=== PATIENT | male | born 1960 | race Caucasian/White ===

== ENCOUNTER 2020-06-03 11:38 | Outpatient (CLI) | payer OTHER, SELFPAY ==
--- NOTE | 2020-06-03 11:46 | XR_ITS ---
WS: [id number] Right shoulder, 2 views, 06/03/2020 Clinical Data: RIGHT SHOULDER PAIN Comparison: None. Findings: No fractures or dislocations are seen. The AC joint is normal. The adjacent right clavicle, right sca pula and ribs are normal. The soft tissues are unremarkable. There is a small needle adjacent to the superior proximal portion of the right clavicle. XR/XR shoulder RT min 2V* [id number] Impression: Negative right shoulder.
== END 2020-06-03 11:39 | disposition home or self-care (01) ==
LOC: RAD 11:42
PROVIDERS: Family Provider Family Medicine; PCP Family Medicine; Visit Provider Family Medicine
DX: M25.511 Pain in right shoulder (principal)
CPT/HCPCS: 73030

== ENCOUNTER → 2020-06-18 09:18 | Outpatient (BNVA) | payer OTHER, SELFPAY | PROVIDERS: Family Provider Family Medicine; PCP Family Medicine; Referring Provider Family Medicine; Visit Provider Urology | DX: R97.20 Elevated prostate specific antigen [PSA] (principal); S40.25 Superficial foreign body of shoulder; X58.XXXA Exposure to other specified factors, initial encounter | CPT/HCPCS: 81001; 84153 ==

== ENCOUNTER → 2020-09-29 15:13 | Outpatient (BNVA) | payer OTHER, SELFPAY | PROVIDERS: Family Provider Family Medicine; PCP Family Medicine; Visit Provider Urology | DX: R97.20 Elevated prostate specific antigen [PSA] (principal); R93.5 Abnormal findings on diagnostic imaging of other abdominal regions, including retroperitoneum | CPT/HCPCS: 81003 ==

== ENCOUNTER 2021-04-18 14:21 | Outpatient (CLI) | payer OTHER, SELFPAY ==
--- NOTE | 2021-04-18 16:10 | N.ONRAD NP_ITS ---
Radiation Oncology Consultation Patient Name: Zcah Clark Date of : 1960 Date of Service: 04/18/2021 Attending Physician: Lupillo Cerda M.D. Zach Clark was seen in consultation this afternoon at the request of Dewayne Shields M.D. for consideration of prostate radiotherapy for the management of a recently diagnosed prostate cancer. He initially was identified to have an elevated PSA level (14.2 ng/mL) in June 2020. An MRI of the prostate ordered on September 06, 2020 demonstrated an ill-defined area of diminished signal on T2-weighted images in the left transition zone between the mid gland and apex and a suspicious area within the left posterolateral peripheral zone. The prostate capsule was intact and there was no abnormally enlarged lymph nodes in the pelvis. A transrectal MRI fusion biopsy of the prostate gland was performed on March 24, 2021 (medical records were requested from the [facility] in [place], [place] and personally reviewed) Pathology diagnosed a prostatic adenocarcinoma with a Julienne score of 3+3 (grade group 1) involving 5% of the left apex random biopsy and 8% of the biopsies from the MRI identified lesions. No extraprostatic extension nor perineural invasion were present. The patient presents for evaluation regarding definitive radiotherapy. I discussed the AJCC clinical stage IIA (T1CN0) favorable intermediate risk prostate cancer specific to the patient's diagnosis and the National Comprehensive Cancer Network Guidelines recommendation for active surveillance, external beam radiotherapy, brachytherapy, or surgery. I have also ordered a PSA and testosterone levels. If the patient elects radiotherapy, I would endorse a hypofractionated treatment regimen. I also discussed potential adverse events related to pelvic radiation treatment. The patient???s treatment plan was discussed with Dewayne Shields M.D. Signed by: Dr. Lupillo Cerda 04/18/2021 4:09:30 PM
[2021-04-18 17:26] LABS: Alanine Aminotransferase 33 U/L (0-41); Albumin Level 4.4 g/dL (3.5-5.2); Alkaline Phosphatase 136 IU/L (40-130); Aspartate Amino Transferase 30 U/L (0-40); Blood Urea Nitrogen 21 mg/dL (8-23); Calcium 9.3 mg/dL (8.5-10.5); Carbon Dioxide 22 mmol/L (22-29); Chloride 103 mmol/L (98-107); Globulin 2.6 g/dL (1.3-4.6); Glomerular Filtration Rate 61.3 mL/min (90-130); Glucose 94 mg/dL (65-115); Osmolality Calculated 291 mOsm/kg (285-295); Sodium 139 mmol/L (136-145); Total Bilirubin 0.2 mg/dL (0.15-1.2)
[2021-04-18 19:38] LABS: Testosterone Total 340.4 ng/dL (193-740)
== END 2021-04-18 14:22 | disposition home or self-care (01) ==
LOC: ONCMED 14:28
PROVIDERS: PCP Family Medicine; Visit Provider Radiology Radiation Oncology
DX: C61 Malignant neoplasm of prostate (principal); R97.20 Elevated prostate specific antigen [PSA]; R79.89 Other specified abnormal findings of blood chemistry; Z79.899 Other long term (current) drug therapy
CPT/HCPCS: 80053; 84153; 84403; 99205

== ENCOUNTER 2021-05-03 06:07 | Outpatient (RCR) | payer OTHER, SELFPAY ==
--- NOTE | 2021-05-03 | CT_ITS ---
Radiation Therapy Planning CT images; total exam DLP: 1094.85 mGy-cm MTDD
== END 2021-05-03 23:59 | disposition home or self-care (01) ==
LOC: ONCMED 06:07
PROVIDERS: PCP Family Medicine; Visit Provider Specialist
DX: Z51.0 Encounter for antineoplastic radiation therapy (principal); C61 Malignant neoplasm of prostate; Z79.899 Other long term (current) drug therapy
CPT/HCPCS: 77334

== ENCOUNTER 2021-06-02 06:35 | Outpatient (RCR) | payer OTHER, SELFPAY ==
--- NOTE | 2021-05-17 16:13 | ONCRAD TMN_ITS ---
Radiation Oncology Treatment Management Note Patient Name: Zach Clark Date of : 1960 Date of Service: 05/17/2021 Attending Physician: Lupillo Cerda M.D. Zach Clark is a 61 year old white male diagnosed with a clinical stage IIA (T1CN0) favorable intermediate risk adenocarcinoma of the prostate. His initial PSA was 11.9 ng/mL. A transrectal MRI fusion biopsy of the prostate gland diagnosed a prostatic adenocarcinoma with a [place] score of 3+3 (grade group 1) involving 5% of the left apex random biopsy and 8% of the biopsies from the MRI identified lesions. The patient has received 12 Gy of a prescribed 60 Sawant to the prostate and seminal vesicles with an intensity modulated radiotherapy plan utilizing a step and shoot treatment technique. Upon review of systems, he described nocturia of 4???5 times. On physical examination, the patient weighed 197 lbs. His temperature was 98 ???F with a blood pressure of 138/87 mmHg. The pulse was 72 bpm and his respiratory rate was 18. No erythema within the treatment rojas. Continue hypofractionated prostate radiotherapy as prescribed. I will prescribe Flomax for LUTS. Signed by: Dr. Lupillo Cerda 05/17/2021 4:12:36 PM
--- NOTE | 2021-05-25 08:39 | ONCRAD TMN_ITS ---
Radiation Oncology Treatment Management Note Patient Name: Zach Clark Date of : 1960 Date of Service: 05/24/2021 Attending Physician: Lupillo Cerda M.D. Zach Clark is a 61 year old white male diagnosed with a clinical stage IIA (T1CN0) favorable intermediate risk adenocarcinoma of the prostate. His initial PSA was 11.9 ng/mL. A transrectal MRI fusion biopsy of the prostate gland diagnosed a prostatic adenocarcinoma with a [place] score of 3+3 (grade group 1) involving 5% of the left apex random biopsy and 8% of the biopsies from the MRI identified lesions. The patient has received 27 Gy of a prescribed 60 Sawant to the prostate and seminal vesicles with an intensity modulated radiotherapy plan utilizing a step and shoot treatment technique. Upon review of systems, he described improvement in nocturia (decreased to 2 times). On physical examination, the patient weighed 196 lbs. His temperature was 97.8 ???F with a blood pressure of 129/80 mmHg. The pulse was 77 bpm and his respiratory rate was 18. No erythema within the treatment rojas. Continue hypofractionated prostate radiotherapy as planned. Signed by: Dr. Lupillo Cerda 05/25/2021 8:38:27 AM
--- NOTE | 2021-06-01 09:49 | ONCRAD TMN_ITS ---
Radiation Oncology Treatment Management Note Patient Name: Zach Clark Date of : 1960 Date of Service: 05/30/2021 Attending Physician: Lupillo Cerda M.D. Zach Clark is a 61 year old white male diagnosed with a clinical stage IIA (T1CN0) favorable intermediate risk adenocarcinoma of the prostate. His initial PSA was 11.9 ng/mL. A transrectal MRI fusion biopsy of the prostate gland diagnosed a prostatic adenocarcinoma with a [place] score of 3+3 (grade group 1) involving 5% of the left apex random biopsy and 8% of the biopsies from the MRI identified lesions. The patient has received 39 Gy of a prescribed 60 Sawant to the prostate and seminal vesicles with an intensity modulated radiotherapy plan utilizing a step and shoot treatment technique. Upon review of systems, he reported worsening nocturia and inguinal swelling. On physical examination, the patient weighed 195 lbs. His temperature was 98 ???F with a blood pressure of 133/87 mmHg. The pulse was 76 bpm and his respiratory rate was 18. No erythema within the treatment rojas. Continue hypofractionated prostate radiotherapy as prescribed. I will increase the Flomax to 0.8 mg nightly. Signed by: Dr. Lupillo Cerda 06/01/2021 9:48:18 AM
== END 2021-06-02 23:59 | disposition home or self-care (01) ==
LOC: ONCMED 06:35
PROVIDERS: PCP Family Medicine; Visit Provider Radiology Radiation Oncology
DX: Z51.0 Encounter for antineoplastic radiation therapy (principal); C61 Malignant neoplasm of prostate; Z79.899 Other long term (current) drug therapy
CPT/HCPCS: 77300; 77301; 77336; 77338; 77385

== ENCOUNTER 2021-06-08 06:30 | Outpatient (RCR) | payer OTHER, SELFPAY ==
--- NOTE | 2021-06-09 08:33 | ONCRAD TMN_ITS ---
Radiation Oncology Treatment Management Note Patient Name: Zach Clark Date of : 1960 Date of Service: 06/07/2021 Attending Physician: Lupillo Cerda M.D. Zach Clark is a 61 year old white male diagnosed with a clinical stage IIA (T1CN0) favorable intermediate risk adenocarcinoma of the prostate. His initial PSA was 11.9 ng/mL. A transrectal MRI fusion biopsy of the prostate gland diagnosed a prostatic adenocarcinoma with a [place] score of 3+3 (grade group 1) involving 5% of the left apex random biopsy and 8% of the biopsies from the MRI identified lesions. The patient has received 57 Gy of a prescribed 60 Sawant to the prostate and seminal vesicles with an intensity modulated radiotherapy plan utilizing a step and shoot treatment technique. Upon review of systems, he stated that the increase in Flomax dosage has improved his symptom of nocturia. On physical examination, the patient weighed 195 lbs. His temperature was 98.9 ???F with a blood pressure of 125/81 mmHg. The pulse was 71 bpm and his respiratory rate was 18. No erythema within the treatment rojas. Continue hypofractionated prostate radiotherapy as planned. Signed by: Dr. Lupillo Cerda 06/09/2021 8:32:15 AM
--- NOTE | 2021-06-09 08:34 | N.ONRD TS_ITS ---
Radiation OncologyTreatment Summary Patient Name: Zach Clark Date of : 1960 Date of Service: 06/08/2021 Attending Physician: Lupillo Cerda M.D. Zach Clark has completed prostate radiotherapy for the management of a clinical stage IIA (T1CN0) favorable, intermediate-risk adenocarcinoma of the prostate. His initial PSA was 11.9 ng/mL. A transrectal MRI fusion biopsy of the prostate gland diagnosed a prostatic adenocarcinoma with a Julienne score of 3+3 (grade group 1) involving 5% of the left apex random biopsy and 8% of the biopsies from the MRI identified lesions. Daily radiotherapy was administered between the dates of May 11, 2021 through June 08, 2021. A prescribed dose of 60 Gy was delivered in 20 fractions encompassing 29 elapsed days. The prostate gland and proximal seminal vesicles were treated utilizing an IMRT plan using a step and shoot treatment technique. The plan arranged seven gantry angles (40???, 100???, 135???, 225???, 260???, 295???, and 330???) replicating an arc. The collimator rotation was 0???. The field sizes measured between 10.5 cm x 9.8 cm to 13.3 cm x 10 cm. The SSDs measured a minimum of 82 cm to a maximum of 86.5 cm. The ports delivered 177 MU, 152 MU, 122 MU, 102 MU, 142 MU, 177 MU, and 791 MU corresponding to the gantry angles described. All treatments were performed on the [employer] linear accelerator with an isocentric technique. The dose was calculated by Anisotropic Analytic Algorithm. A Photon energy of 15 MV were prescribed. The plan was normalized to deliver 100% of the prescription dose to 95% of the planning target volume. Signed by: Dr. Lupillo Cerda 06/09/2021 8:32:25 AM
== END 2021-07-03 23:59 | disposition home or self-care (01) ==
LOC: ONCMED 06:30
PROVIDERS: PCP Family Medicine; Visit Provider Radiology Radiation Oncology
DX: Z51.0 Encounter for antineoplastic radiation therapy (principal); C61 Malignant neoplasm of prostate
CPT/HCPCS: 77014; 77336; 77385

== ENCOUNTER 2021-07-08 06:23 | Outpatient (RCR) | payer OTHER, SELFPAY ==
--- NOTE | 2021-07-08 08:37 | ONCRAD EPV_ITS ---
Radiation Oncology Follow-Up Note Patient Name: Zach Clark Date of : 1960 Date of Service: 07/08/2021 Attending Physician: Lupillo Cerda M.D. Zach Clark returned to my office this morning for a routinely scheduled follow-up appointment. He completed prostate radiotherapy in June for the management of a clinical stage IIA (T1CN0) favorable, intermediate-risk adenocarcinoma of the prostate. His initial PSA was 11.9 ng/mL. A transrectal MRI fusion biopsy of the prostate gland diagnosed a prostatic adenocarcinoma with a [place] score of 3+3 (grade group 1) involving 5% of the left apex random biopsy and 8% of the biopsies from the MRI identified lesions. Daily radiotherapy was administered between the dates of May 11, 2021 through June 08, 2021. A prescribed dose of 60 Gy was delivered in 20 fractions encompassing 29 elapsed days. On review of systems, he did not describe any lower urinary tract symptoms (dysuria) nor did he report diarrhea. On physical examination, the patient weighed 192 pounds. The temperature is 98 ???F and the blood pressure was 140/83 mmHg. The pulse was 74 bpm and his respiratory rate was 18 breaths per minute In summary, Mr. Clark returned for a routine follow-up appointment. A PSA obtained prior to this appointment was 5.1 ng/mL. The PSA is trending down. He will continue to see his urologist as scheduled. Signed by: Dr. Lupillo Cerda 07/08/2021 8:36:00 AM
== END 2021-08-02 23:59 | disposition home or self-care (01) ==
LOC: ONCMED 06:23
PROVIDERS: PCP Family Medicine; Visit Provider Radiology Radiation Oncology
DX: Z08 Encounter for follow-up examination after completed treatment for malignant neoplasm (principal); Z85.46 Personal history of malignant neoplasm of prostate; Z92.3 Personal history of irradiation
CPT/HCPCS: 36415; 84153; 99024

== ENCOUNTER 2021-10-24 12:42 | Outpatient (CLI) | payer OTHER, SELFPAY ==
--- NOTE | 2021-10-24 13:00 | XR_ITS ---
WS: [id number] RIGHT SHOULDER: 3 VIEW(S) TECHNIQUE: Internal and external rotation with Y view. HISTORY: SHOULDER PAIN, RIGHT COMPARISON: 06/03/2020 No fracture or dislocation or soft tissue abnormality. Mild narrowing of the RIGHT AC joint. Similar to the prior study. XR/XR shoulder RT min 2V* [id number] IMPRESSION: Mild RIGHT AC joint arthritis.
== END 2021-10-24 12:43 | disposition home or self-care (01) ==
PROVIDERS: PCP Family Medicine; Visit Provider Family Medicine
DX: M19.011 Primary osteoarthritis, right shoulder (principal)
CPT/HCPCS: 73030

== ENCOUNTER 2021-11-23 14:57 | Outpatient (CLI) | payer OTHER, SELFPAY ==
--- NOTE | 2021-11-23 15:11 | MR_ITS ---
WS: [id number] MRI RIGHT SHOULDER HISTORY: SHOULDER PAIN RIGHT COMPARISON: Shoulder radiograph 10/24/2021. TECHNIQUE: Multiplanar sequences of the shoulder joint are submitted. Mild AC joint arthritis. Soft tissue and bone hypertrophy with mild encroachment upon the rotator cuf f. Downsloping acromion with a moderate size osteophyte along the distal undersurface of the acromion measuring 6 mm contacting the rotator cuff interval. Lobulated subacromial and subdeltoid effusion. No os acromion. Biceps tendon is partially dislocated at the bicipital groove. The tendon in the bici pital groove is very small caliber. Increased fluid within the biceps tendon sheath. Abnormal signal in the distal supraspinatus tendon. Beyond the subacromial impingement there is thick ening and increased T2 signal within the tendon. Full-thickness tear is suspected. There is also asso ciated moderate atrophy and fatty replacement of the supraspinatus muscle. Mild intrasubstance degene ration of the distal subscapularis tendon but no definite tear. Infraspinatus tendon appears intact. Mild narrowing of the glenohumeral joint. No labral tear identified. Mild flattening of the posterior lateral humeral head with osseous changes suspicious for osteonecrosis. MR/MR shoulder RT wo con* [id number] IMPRESSION: 1. Torn retracted supraspinatus tendon to the superior humeral head. Moderate atrophy and fatty replacement of the supraspinatus muscle. 2. Subacromial impingement with narrowing of the joint space contributing to t he supraspinatus tear. 3. Mildly complex lobulated fluid in the subacromial and subdeltoid bursa. Pro bably reactive from the subacromial impingement. 4. Mild AC joint arthritis with encroachment. 5. Small caliber and mildly subluxed biceps tendon in the bicipital groove. Mi ld tenosynovitis.
== END 2021-11-23 14:58 | disposition home or self-care (01) ==
PROVIDERS: PCP Family Medicine; Visit Provider Family Medicine
DX: M75.101 Unspecified rotator cuff tear or rupture of right shoulder, not specified as traumatic (principal); M19.011 Primary osteoarthritis, right shoulder
CPT/HCPCS: 73221

== ENCOUNTER 2022-01-05 07:33 | Day surgery (SDC) | payer OTHER, SELFPAY ==
[2022-01-03 11:35] VITALS: BMI 25.7
[2022-01-05] VITALS (8 sets, daily range): BP systolic 110–147; BP diastolic 63–90; PULSE 57–74; RESP 15–20; TEMP 36.2–36.3; O2SAT 95–100
[2022-01-05 08:13] LABS: Glucose Point of Care 125 mg/dL (70-110)
[2022-01-05] MEDS: acetaminophen 500 mg Tablet 1000 MG PO (08:13)
[2022-01-05] MEDS: sodium chloride 0.9% 1,000 ML 30 ML IV (08:13)
--- NOTE | 2022-01-05 08:25 | ANES.PREANE2 ---
Pre-Anesthetic Assessment Height/Weight: Height 1.83 m Weight 86.183 kg Temp Pulse Resp BP Pulse Ox 97.3 F L 73 16 147/90 99 01/05/22 07:51 01/05/22 07:51 01/05/22 07:51 01/05/22 07:51 01/05/22 07:51 Preop Diagnosis: Rotator cuff tear Right shoulder Operation Date: 01/05/22 09:10 Proposed Procedures p Rotator Cuff Repair M75.101(Right) - Ivan Madrid MD s Shoulder Arthroscopy(Right) - Ivan Madrid MD Familial anesthetic complications: None Was Beta Jett taken within 24 hours: N/A Was Clonidine taken within 24 hours: N/A Last intake: Intake Last Liquid Date 01/04/22 Last Liquid Time 21:00 Last Solid Date 01/04/22 Last Solid Time 21:00 Social No alcohol and No tobacco Exam alert, oriented x 3, clear to auscultation bilaterally and regular rate & rhythm Airway Mallampati: Class II Dentition: partials Pulmonary None reported CV/HEM Hypertension None reported Hepatic None reported GI None reported Metabolic Diabetes Mellitus and Hyperlipidemia [facility] [place] Osteoarthritis/DJD Neuropsych None reported Anesthetic Plan ASA status: 3 Anesthesia: General and Regional (specify below) Risk of > 500 ml blood loss (7ml/kg in children): No Medications/Allergies Home Medications Medication Instructions Recorded Confirmed Last Taken Type atorvastatin 10 mg tablet 10 mg PO DAILY 06/09/20 01/05/22 01/04/22 History losartan 25 mg tablet 25 mg PO DAILY 06/09/20 01/05/22 01/04/22 History metformin 500 mg tablet 1,000 mg PO BID 06/09/20 01/05/22 01/04/22 History omega-3 fatty acids 500 mg capsule 500 mg PO DAILY 06/09/20 01/05/22 01/04/22 History cholecalciferol (vitamin D3) 50 50 mcg PO DAILY 06/18/20 01/05/22 01/04/22 History mcg (2,000 unit) capsule multivitamin,[id number] 1 tab PO DAILY 06/18/20 01/03/22 Unknown History (Complete Multivitamin) insulin aspart U-100 100 unit/mL 100 unit SUBCUT DAILY PRN 09/29/20 01/05/22 01/02/22 History (3 mL) subcutaneous pen (Novolog Flexpen U-100 Insulin aspart) cyclobenzaprine 10 mg tablet 10 mg PO TID 12/28/21 01/03/22 Unknown History naproxen 500 mg tablet (Naprosyn) 500 mg PO BID #60 tab 12/28/21 01/05/22 Unknown Rx tramadol 50 mg tablet 50 mg PO Q8H PRN 12/28/21 01/05/22 12/27/21 History Allergies Allergy/AdvReac Type Severity Reaction Status Date / Time shrimp Allergy Unknown Unknown Verified 01/03/22 11:33 Current Medications Generic Name Dose Route Start Last Admin Trade Name Freq PRN Reason Stop Dose Admin Sodium Chloride 1,000 mls @ 30 mls/hr 01/05/22 07:45 01/05/22 08:13 Sodium Chloride 0.9% IV 01/06/22 07:44 30 mls/hr .Q24H BISI Administration PFSH Anesthesia Medical History Bursitis DM2 (diabetes mellitus, type 2) Elevated cholesterol Elevated PSA HTN (hypertension) Prostate cancer Vitamin D deficiency Surgical History Hx of prostate biopsy Family History Brother Diabetes Father , AFTER A WHIPPLE PROCEDURE FOR TUMOR IN PANCREAS Cancer Mother Diabetes CABG AT AGE 86 Social History Smoking and tobacco status: former smoker Alcohol intake: unknown Adopted: No Caregiver/support person: No Lives independently: No Marital status: Current occupational status: employed Data Anesthesia Cardiac Studies: No Data to Display
--- NOTE | 2022-01-05 09:17 | W.PM.OPSUD ---
Surgery/Procedure H&P Update DATE OF PROCEDURE: January 05, 2022 DATE H&P PERFORMED: 12/28/21 H&P UPDATE INFORMATION: I have reviewed H&P completed within last 30 days PREOP DIAGNOSIS: Rotator cuff tear Right shoulder PLANNED PROCEDURE: Operation Date: 01/05/22 09:10 Proposed Procedures p Rotator Cuff Repair M75.101(Right) - Ivan Madrid MD s Shoulder Arthroscopy(Right) - Ivan Madrid MD
[2022-01-05 09:48] LABS: Anion Gap 19.3 (5-19); Blood Urea Nitrogen 25 mg/dL (8-23); Carbon Dioxide 24 mmol/L (22-29); Chloride 103 mmol/L (98-107); Glomerular Filtration Rate 61.3 mL/min (90-130); Glucose 135 mg/dL (65-115); Osmolality Calculated 300 mOsm/kg (285-295); Potassium 4.3 mmol/L (3.5-5.1); Sodium 142 mmol/L (136-145)
--- NOTE | 2022-01-05 09:55 | ANES.PROC ---
Anesthesia Procedures Procedure/Date: 01/05/22 Nerve Block ^: Nerve Block 1: Main Anesthesia: general anesthesia Time Out Performed: Yes Consent: requested by attending/covering physician, from patient, risks and benefits reviewed and patient agrees to proceed Nerve block location: interscalene (R) Anesthesia monitors applied: pulse oximetry, EKG, BP cuff and oxygen Nerve block position: semi sitting Anesthetic Used: ropivicaine 0.5% (20) and with decadron (4 mg) Ultrasound used to: recognize landmarks, visualize and ID brachial plexus and visualize and ID interscalene groove Nerve Stimulator Used?: No Interscalene/Femoral BLK: 2 stimuplex 22 g needle used for position and inplane approach, visualize local anesthetic spread and no vascular puncture identified Injection: neg aspiration of heme Patient Tolerated Procedure: well Complications: none
--- NOTE | 2022-01-05 12:09 | PM.OP ---
Operative Report Date of procedure: January 05, 2022 Pre-op diagnosis: Preop Diagnosis Rotator cuff tear Right shoulder Post-op diagnosis: same Post-op diagnosis: Full-thickness tear of right rotator cuff, partial tear right biceps tendon, impingement Procedure done: Arthroscopic right rotator cuff repair, arthroscopic right subacromial decompression, arthroscopic assisted open right biceps tenodesis Implants: Flores and Nephew Helicoil 5.5 mm knotless x2, Flores and Nephew Helicoil 4.5 mm with Ultratape x2, Flores and Nephew Q fix x2 Pathology: none sent Surgeon: Ivan Madrid Anesthesia: General and Nerve Block (Interscalene) Estimated blood loss (mL): 20 Findings: The patient had a full-thickness tear of his central supraspinatus approximately 2 cm from anterior to posterior with a centimeter and half of tenderness retraction. He had degeneration and partial tearing of his biceps tendon from the labrum to where it entered the bicipital groove. He had prominent spurring of his acromion. No labral tearing or glenohumeral degenerative changes were noted. Condition: stable Disposition: PACU Procedure: Patient was taken to the operating room after interscalene block was provided by anesthesia. He was given 2 g of Ancef and a general anesthesia. He was positioned in the lateral position with his right arm and 10 and later 15 pounds of traction. A timeout was performed. The shoulder was entered through a posterior portal made 2 cm inferior medial to the posterior corner of the acromion. A scope cannula and trocar were driven into the glenohumeral joint. An 8 mm inflow cannula was placed anteriorly. The above rotator cuff tear was identified. The intra-articular biceps tendon looked degenerative with a longitudinal split. I decision was made to proceed with a biceps tenodesis. A spinal needle was introduced from the lateral shoulder and a Prolene suture passed across the biceps. Both limbs of the suture retracted out to the anterior portal and secured with half hitch sutures. The Flores and Nephew Werewolf cautery was used to release the biceps from its attachment on the superior labrum. The scope and anterior cannula were then redirected to the subacromial space. A lateral working portal was opened up with the scalpel blade and a lateral cannula introduced there. The leading edge of the acromion was outlined. 5 5 acromionizer introduced and prominent spurring of the anterior and inferior acromion was removed. Attention was then focused on the rotator cuff. The footprint was debrided with the acromionizer. Through a small lateral stab wound a Flores and Nephew Helicoil 4.5 mm anchor with tape suture was passed in the posterior medial footprint. A Flores and NephSoft Tissue Regeneration FirstPass suture passer was used to shuttle 1 limb of tape through the far posterior rotator cuff tear approximately 8 mm from the edge and the second limb approximately 5 mm anterior to that. The second anchor was placed in the anterior medial footprint and sutures passed in identical fashion. Each suture was applied to the lateral cork cannula with a sliding Martinez knot and the alternating half hitch bringing the medial rotator cuff to bone. 1 suture from each anchor was brought out the lateral cannula and passed through a Flores and Nephew Helicoil knotless anchor. A posterior lateral anchor was placed and the suture secured through the anchor drawing the posterior rotator cuff to bone. A second anchor was placed anterior laterally drawing the remaining sutures through drawing the anterior lateral cuff to bone. The repair was probed and found to be stable. Next a 3 cm long incision was made just anterior to the axillary fold dissection was carried down bluntly beneath the pectoralis major identifying the biceps tendon in the bicipital groove. It was retracted out through the incision. The inferior bicipital groove was cleared of soft tissue with cautery. 2Q fix anchors were placed approximately a centimeter apart. There passed around the biceps and a locking luggage tag type fashion securing the tension biceps to bone. The tenodesis incision was irrigated with saline. Deep tissues were closed with 2-0 Vicryl and the skin with interrupted 3-0 Prolene. Portals were closed with 3-0 Prolene. Xeroflo gauze was placed over the tenodesis incision and all incisions were covered with 4 x 4's ABD pads and Aquaphor tape. The patient was placed in a sling, extubated, and taken to recovery room in stable condition.
--- NOTE | 2022-01-05 12:18 | SUR.PHASEI ---
1208 PT TO PACU 5 , WARM BLANKETS X 4 TO PT, PT AWAKES TO VOICE, GOOD RESPIRATRORY EFFORT NOTED RT SHOULDER DRESSING D/I DISTAL FINGERS PINK WARM WITH CAP REFILL LESS THAN 3 SECONDS, PT MOVES FINGERS TO COMMAND, STATE HE HAS (NUMB) SENSATION TO TOUCH, IV TO LT FOREARM #18 PATENT TO NS 100ML UP AT KVO RATE PER GRAVITY, BILAT SCDS ON . PT ID BRACELET TO LT WRIST , PT ID'D WITH 2 IDENTIFIERS.
[2022-01-05] MEDS: ondansetron 2 mg/ML SDV 2 mL 4 MG IVP (13:17)
== END 2022-01-05 13:52 | disposition home or self-care (01) ==
PROVIDERS: Anesthesiology; PCP Family Medicine; Visit Provider Orthopaedic Surgery
PROC: (CPT 29826; principal; 2022-01-05 09:00)
PROC: (CPT 29805; 2022-01-05 09:00)
DX: M75.101 Unspecified rotator cuff tear or rupture of right shoulder, not specified as traumatic (principal); I10 Essential (primary) hypertension; E11.9 Type 2 diabetes mellitus without complications; E78.5 Hyperlipidemia, unspecified; M19.90 Unspecified osteoarthritis, unspecified site; Z79.4 Long term (current) use of insulin; Z79.84 Long term (current) use of oral hypoglycemic drugs; Z80.42 Family history of malignant neoplasm of prostate; E55.9 Vitamin D deficiency, unspecified; Z87.891 Personal history of nicotine dependence
CPT/HCPCS: 29826; 29827; 29828; 36416; 64415; 76942; 80048; 82962; C1713; J0690; J1100; J2405; J2704; J2795; J3010; J3490; J7030

== ENCOUNTER → 2022-01-13 12:23 | Outpatient (BNVA) | payer OTHER, SELFPAY | PROVIDERS: PCP Family Medicine; Visit Provider Family Medicine | DX: I10 Essential (primary) hypertension (principal); C61 Malignant neoplasm of prostate | CPT/HCPCS: 80053; 83036; 84153; 85025 ==

== ENCOUNTER 2022-02-22 06:00 | Outpatient (RCR) | payer OTHER, SELFPAY | END 2022-03-02 23:59 | disposition home or self-care (01) | LOC: SPT 06:00 | PROVIDERS: PCP Family Medicine; Referring Provider Orthopaedic Surgery; Visit Provider Orthopaedic Surgery | DX: Z47.89 Encounter for other orthopedic aftercare (principal) | CPT/HCPCS: 97110; 97161 ==

== ENCOUNTER 2022-03-03 06:00 | Outpatient (RCR) | payer OTHER, SELFPAY | END 2022-04-02 23:59 | disposition home or self-care (01) | LOC: SPT 06:00 | PROVIDERS: PCP Family Medicine; Referring Provider Orthopaedic Surgery; Visit Provider Orthopaedic Surgery | DX: Z47.89 Encounter for other orthopedic aftercare (principal); M25.511 Pain in right shoulder | CPT/HCPCS: 97110; 97140 ==

== ENCOUNTER 2022-04-03 06:00 | Outpatient (RCR) | payer OTHER, SELFPAY | END 2022-05-03 23:59 | disposition home or self-care (01) | LOC: SPT 06:00 | PROVIDERS: PCP Family Medicine; Visit Provider Orthopaedic Surgery | DX: Z47.89 Encounter for other orthopedic aftercare (principal) | CPT/HCPCS: 97110 ==

== ENCOUNTER → 2022-04-20 11:12 | Outpatient (BNVA) | payer OTHER, SELFPAY | PROVIDERS: PCP Family Medicine; Visit Provider Family Medicine | DX: Z51.81 Encounter for therapeutic drug level monitoring (principal); E11.9 Type 2 diabetes mellitus without complications; R97.20 Elevated prostate specific antigen [PSA]; Z98.890 Other specified postprocedural states; C61 Malignant neoplasm of prostate; R35.0 Frequency of micturition; I10 Essential (primary) hypertension; R74.8 Abnormal levels of other serum enzymes | CPT/HCPCS: 80053; 83036; 85025 ==

== ENCOUNTER → 2022-12-26 09:08 | Outpatient (BNVA) | payer OTHER, SELFPAY | PROVIDERS: PCP Family Medicine; Visit Provider Family Medicine | DX: I10 Essential (primary) hypertension (principal); E11.9 Type 2 diabetes mellitus without complications; R97.20 Elevated prostate specific antigen [PSA]; Z51.81 Encounter for therapeutic drug level monitoring; Z13.220 Encounter for screening for lipoid disorders; E53.8 Deficiency of other specified B group vitamins | CPT/HCPCS: 80053; 80061; 82607; 83036; 84153; 85025 ==

== ENCOUNTER → 2024-02-28 09:44 | Outpatient (BNVA) | payer MEDICARE, SELFPAY | PROVIDERS: PCP Family Medicine; Visit Provider Family Medicine | DX: Z00.00 Encounter for general adult medical examination without abnormal findings (principal); E53.8 Deficiency of other specified B group vitamins; C61 Malignant neoplasm of prostate; E55.9 Vitamin D deficiency, unspecified; Z51.81 Encounter for therapeutic drug level monitoring; R61 Generalized hyperhidrosis | CPT/HCPCS: 80053; 82306; 82607; 83036; 84153; 84439; 84443; 85025; 86141 ==

== ENCOUNTER 2024-04-18 06:31 | Outpatient (CLI) | payer MEDICARE, SELFPAY ==
--- NOTE | 2024-04-18 06:45 | US_ITS ---
WS: [id number] RENAL ULTRASOUND URINARY BLADDER ULTRASOUND HISTORY: CKD COMPARISON: None available. TECHNIQUE: 2-D and color Doppler imaging of the kidney submitted. Right kidney: 9.9 cm x 5.1 cm x 5.1 cm. Normal echogenicity with no hydronephrosis or mass. Lower pole is partially obscured by adjacent GI t ract content. Left kidney: 10.7 cm x 4.3 cm x 3.8 cm. Normal echogenicity with no hydronephrosis or mass. Aorta: Mild atherosclerosis. Urinary Bladder: Bladder is not distended completely. This is resulting in diffuse bladder wall thick ening. Mildly lobulated appearance of the bladder wall. Prevoid volume: 60 mL. Post void volume 2 mm. Prostate gland is enlarged and heterogeneous encroaching into the bladder. US/US renal BI with PV bladder IMPRESSION: 1. No hydronephrosis or atrophy of either kidney. 2. Urinary bladder is not distended resulting in diffuse bladder wall thickeni ng. There is no significant post void residual. 3. Prostate gland is enlarged. Suspect component of bladder wall thickening du e to outlet obstruction.
== END 2024-04-18 06:32 | disposition home or self-care (01) ==
LOC: RAD 06:32
PROVIDERS: PCP Family Medicine; Visit Provider Family Medicine
DX: N18.30 Chronic kidney disease, stage 3 unspecified (principal); N40.0 Benign prostatic hyperplasia without lower urinary tract symptoms
CPT/HCPCS: 76770; 76857

== ENCOUNTER → 2024-09-10 08:43 | Outpatient (BNVA) | payer MEDICARE, SELFPAY | PROVIDERS: PCP Family Medicine; Visit Provider Family Medicine | DX: Z51.81 Encounter for therapeutic drug level monitoring (principal); Z13.220 Encounter for screening for lipoid disorders; E11.9 Type 2 diabetes mellitus without complications | CPT/HCPCS: 80053; 80061; 83036; 85025 ==

== ENCOUNTER 2024-10-01 07:10 | Outpatient (CLI) | payer MEDICARE, SELFPAY ==
--- NOTE | 2024-10-01 07:15 | US_ITS ---
WS: [id number] RIGHT UPPER QUADRANT ULTRASOUND HISTORY: Elevated alk phos and transaminases COMPARISON: 04/18/2024 Liver: 15.0 cm in length. Normal size liver. No mass or intrahepatic duct dilatation. Portal Vein: Normal hepatopetal flow with monophasic waveform. Gallbladder: Normally distended gallbladder. Small amount of artifact versus sludge within the gallbl adder. No stones or wall thickening. CBD: 0.2 cm Pancreas: Poorly visualized. Right kidney: 9.9 cm in length. Normal size and echogenicity. No hydronephrosis or mass. Aorta and IVC: Unremarkable abdominal aorta and IVC. No ascites. US/US liver [id number] IMPRESSION: 1. No cholelithiasis or gallbladder wall thickening. 2. Normal common bile duct. 3. Normal liver.
== END 2024-10-01 07:11 | disposition home or self-care (01) ==
PROVIDERS: PCP Family Medicine; Visit Provider Family Medicine
DX: R74.8 Abnormal levels of other serum enzymes (principal); R74.01 Elevation of levels of liver transaminase levels
CPT/HCPCS: 76705

== ENCOUNTER 2024-11-19 06:43 | Observation (INO) | payer MEDICARE, SELFPAY ==
[2024-11-19] VITALS (13 sets, daily range): BP systolic 83–148; BP diastolic 62–87; PULSE 72–93; RESP 12–18; TEMP 36.8–37.2; O2SAT 93–100; BMI 25.7
--- NOTE | 2024-11-19 06:51 | XRR_ITS ---
PROCEDURE INFORMATION: Exam: XR Chest Exam date and time: 11/19/2024 6:56 AM Age: 64 years old Clinical indication: Pain; Angina pectoris; Additional info: Chest pain TECHNIQUE: Imaging protocol: Radiologic exam of the chest. Views: 1 view. COMPARISON: MR shoulder RT wo con* [id number] 11/23/2021 3:22 PM FINDINGS: Lungs: The pulmonary vessels are within normal limits. The lungs are clear. Pleural spaces: No pneumothorax. Heart/Mediastinum: The cardiomediastinal silhouette is within normal limits. Bones/joints: Prior surgical changes in the right shoulder joint. XR/XR chest 1V portable [id number] IMPRESSION: No acute pulmonary finding.
--- NOTE | 2024-11-19 06:52 | ECG_ITS ---
[facility] Test Date: 2024-11-19 Pat Name: Zach Clark Department: Room: Gender: Male Education Technician: : 1960 Requested By: Uday [place] Order Number: [id number] Devi MD: Latrell Ross M.D. Measurements Intervals [place] Rate: 71 P: 68 [place]: 193 QRS: 27 QRSD: 84 T: 40 QT: 365 QTc: 399 Interpretive Statements SINUS RHYTHM No previous ECG available for comparison Electronically Signed On 11-19-2024 22:04:02 CDT by Latrell Ross M.D. [id number]
--- NOTE | 2024-11-19 06:54 | W.ED.CHESTPA ---
HPI - Chest Pain General: Chief Complaint: Chest Pain Stated Complaint: CP Time Seen by Provider: 11/19/24 06:51 History of Present Illness: 64-year-old male with a history of diabetes mellitus and chronic kidney disease presents to the emergency room with complaints of chest pain. He had chest pain intermittently overnight. Pain began while at rest several times it would wax and wane. He did not take anything for it. He denies any previous cardiac evaluations. It worsened this morning waking up he eventually called the math. He reports that 8 of 10 chest pain radiating to his neck and arms with diaphoresis and shortness of breath when he called EMS. On their arrival he was given aspirin and sublingual nitro. This did alleviate some of the pain and reports pain at 4 out of 10 on arrival he is no longer diaphoretic he denies any shortness of breath at this time. Patient is a former smoker. Associated symptoms: Deny abdominal pain, dyspnea or fever(s) Related Data Home Medications ?Medication ?Instructions ?Recorded ?Confirmed multivitamin,dw-[id number]-[id number] 1 tab PO DAILY 06/18/20 11/19/24 (Complete Multivitamin tablet) metformin 1,000 mg tablet 1,000 mg PO BID 11/19/24 11/19/24 Previous Rx's ?Medication ?Instructions ?Recorded lansoprazole 30 mg capsule,delayed See Rx Instructions .Route 03/31/24 release .COMPLEX #90 caps atorvastatin 10 mg tablet 10 mg PO DAILY #90 tabs 08/04/24 losartan 25 mg tablet 25 mg PO DAILY #90 tabs 09/15/24 Allergies Allergy/AdvReac Type Severity Reaction Status Date / Time shrimp Allergy Unknown Unknown Verified 11/19/24 06:48 Review of Systems Const: Denies: fever(s) or chills Card: Reports: chest pain Resp: Denies: dyspnea GI: Denies: abdominal pain : Denies: dysuria, urinary frequency or urinary urgency Musc: Denies: neck pain or back pain Skin/Breast: Denies: rash PFSH ED PFSH: Medical History Prostate cancer Elevated PSA DM2 (diabetes mellitus, type 2) Elevated cholesterol HTN (hypertension) Bursitis Vitamin D deficiency Surgical History History of shoulder surgery Right Hx of prostate biopsy Family History Brother Diabetes CAD (coronary artery disease) Father , AFTER A WHIPPLE PROCEDURE FOR TUMOR IN PANCREAS Cancer Mother Diabetes CABG AT AGE 86 CAD (coronary artery disease) Social History Smoking and tobacco/nicotine status: never used tobacco/nicotine Quit status (tobacco/nicotine): has quit using Year quit tobacco: ~2000 Alcohol intake: never Substance/Drug Use: never Adopted: No Caregiver/support person: No Lives independently: No Marital status: Current occupational status: retired Previous occupational history: [employer] - Retired Physical Exam Const: GENERAL APPEARANCE: cooperative ORIENTATION/CONSCIOUSNESS: Yes awake, Yes oriented to person, Yes oriented to place and Yes oriented to time HENMT: COMMON NORMALS: normocephalic, atraumatic and hearing grossly normal bilaterally HEAD & SCALP: normocephalic and atraumatic Resp: COMMON NORMALS: normal respiratory effort, No retractions, No use of accessory muscles and clear to auscultation bilaterally AUSCULTATION: clear to auscultation bilaterally Cardio: COMMON NORMALS: regular rate, regular rhythm and No murmurs present (Cardio) RATE: regular rate RHYTHM: regular rhythm GI: COMMON NORMALS: Soft to palpation and No hepatosplenomegaly present AUSCULTATION: Yes normoactive bowel sounds PALPATION: Yes Soft to palpation, No Tenderness to palpation present (GI), No Guarding due to palpation present (GI) and Yes No hepatosplenomegaly present Extremity: COMMON NORMALS: normal to inspection, capillary refill normal, no clubbing, cyanosis or edema, no calf tenderness and no pedal edema Neuro: SENSORIUM/ORIENTATION: Yes oriented to person, Yes oriented to place and Yes oriented to time Skin: COMMON NORMALS: no rashes or lesions noted GENERAL SKIN EXAM: no rashes or lesions noted Course Vital Signs: Vital signs: Vital Signs Temperature 98.3 F 11/19/24 06:43 Pulse Rate 91 11/19/24 16:00 Respiratory Rate 14 11/19/24 16:00 Blood Pressure 137/82 11/19/24 16:00 Pulse Oximetry 96 11/19/24 16:00 Oxygen Delivery Me thod Room Air 11/19/24 16:00 MDM - Chest Pain Medical Decision Making Unstable angina responsive to nitroglycerin symptoms now resolved. Now patient reports he only has pain with deep inspiration previously it was continuous. He is still on half inch of Nitropaste. EKG does not show any acute changes cardiac enzymes trending without a significant delta. Patient does have risk factors former smoker diabetes mellitus hypertension. Place patient in observation for further cardiac evaluation including early stress testing. Reviewed findings with the patient he is agreeable. Medical Records I reviewed the patient's medical records. Lab Data I reviewed the patient's lab results. 11/19/24 06:48 11/19/24 06:48 Radiology Impressions Chest X-Ray 11/19/24 06:51 IMPRESSION: No acute pulmonary finding. Laboratory Results WBC 13.01 10^3/uL (3.29-11.43) H 11/19/24 06:48 RBC 3.95 10^6/uL (3.85-5.65) 11/19/24 06:48 Hgb 12.30 g/dL (11.27-16.99) 11/19/24 06:48 Hct 37.4 % (37-53) 11/19/24 06:48 MCV 94.7 fl (82-101) 11/19/24 06:48 MCH 31.1 pg (27-33) 11/19/24 06:48 MCHC 32.9 g/dL (30-55) 11/19/24 06:48 RDW 12.6 % (12.1-15.1) 11/19/24 06:48 Plt Count 318 10^3/cmm (157-399) 11/19/24 06:48 MPV 10.5 fL (7.4-10.4) H 11/19/24 06:48 Neut % (Auto) 75.0 % 11/19/24 06:48 Lymph % (Auto) 11.1 % 11/19/24 06:48 [place] % (Auto) 7.5 % 11/19/24 06:48 Eos % (Auto) 4.7 % 11/19/24 06:48 Baso % (Auto) 0.8 % 11/19/24 06:48 Neut # (Auto) 9.74 10^3/uL (1.8-7.7) H 11/19/24 06:48 Lymph # (Auto) 1.5 10^3/uL (0.8-4.8) 11/19/24 06:48 [place] # (Auto) 1.0 10^3/uL (0.2-0.9) H 11/19/24 06:48 Eos # (Auto) 0.6 10^3/uL (0.0-0.8) 11/19/24 06:48 Baso # (Auto) 0.1 10^3/uL (0.0-0.1) 11/19/24 06:48 Nucleated RBC % (auto) 0 % 11/19/24 06:48 Nucleated RBCs # 0.0 /100WBC 11/19/24 06:48 D-Dimer 0.39 ug/mLFEU (0-0.59) 11/19/24 06:48 Sodium 134 mmol/L (136-145) L 11/19/24 06:48 Potassium 4.4 mmol/L (3.5-5.1) 11/19/24 06:48 Chloride 102 mmol/L (98-107) 11/19/24 06:48 Carbon Dioxide 17 mmol/L (22-29) L 11/19/24 06:48 Anion Gap 19.4 (5-19) H 11/19/24 06:48 BUN 28 mg/dL (8-23) H 11/19/24 06:48 Creatinine 1.5 mg/dL (0.7-1.2) H 11/19/24 06:48 GFR Calculation 47.0 mL/min (90-130) L 11/19/24 06:48 Glucose 151 mg/dL (65-115) H 11/19/24 06:48 Calculated Osmolality 286 mOsm/kg (285-295) 11/19/24 06:48 Calcium 9.0 mg/dL (8.5-10.5) 11/19/24 06:48 Total Bilirubin 0.3 mg/dL (0.15-1.2) 11/19/24 06:48 AST 31 U/L (0-40) 11/19/24 06:48 ALT 25 U/L (0-41) 11/19/24 06:48 Alkaline Phosphatase 116 U/L (40-130) 11/19/24 06:48 Troponin T Baseline 16 ng/L (0-15) H 11/19/24 06:48 Troponin T 120 Minute 16.10 ng/L (0-15) H 11/19/24 08:41 Delta Troponin T 0.10 ABS# (0-10) 11/19/24 08:41 Total Protein 7.2 g/dL (6.6-8.7) 11/19/24 06:48 Albumin 4.1 g/dL (3.5-5.2) 11/19/24 06:48 Globulin 3.1 g/dL (1.3-4.6) 11/19/24 06:48 Urine Color Yellow (Yellow) 11/19/24 07:57 Urine Appearance Clear (CLEAR) 11/19/24 07:57 Urine pH 5.0 (5-7) 11/19/24 07:57 Ur Specific [place] 1.018 (1.005-1.030) 11/19/24 07:57 Urine Protein Negative (Negative) 11/19/24 07:57 Urine Glucose (UA) Negative (Normal) 11/19/24 07:57 Urine Ketones Negative (Negative) 11/19/24 07:57 Urine Blood Negative (Negative) 11/19/24 07:57 Urine Nitrate Negative (Negative) 11/19/24 07:57 Urine Bilirubin Negative (Negative) 11/19/24 07:57 Urine Urobilinogen 1.0 mg/dL (Negative) 11/19/24 07:57 Ur Leukocyte Esterase Negative (Negative) 11/19/24 07:57 Urine RBC 0-2 /hpf (0-2) 11/19/24 07:57 Urine WBC 0-5 /hpf (0-5) 11/19/24 07:57 Ur Squamous Epith Cells 0-5 /hpf (0-5) 11/19/24 07:57 Amorphous Sediment Not Reportable 11/19/24 07:57 Urine Bacteria None seen /hpf (NONE) 11/19/24 07:57 Hyaline Casts 1.65 /lpf 11/19/24 07:57 All radiology interpretation(s) finalized by discharge Clincial Decision Support The following clinical decision support tools were used to aid in care of the patient HEART Score -> History: Highly Suspicious, EKG: Non-specific Changes, Age: 65 or more yrs, Risk Factors: >/=3 Risk Factors, Troponin: Baseline Trop <16 ng/L. Resulting HEART Score: 7. Discharge Plan Discharge Patient Disposition: Placed in Observation Admit Provider: Anders Pack Clinical Impression: Unstable angina pectoris, HTN (hypertension), DM2 (diabetes mellitus, type 2), Hyperlipidemia Coding Level of Care Code ED Letter Sorting Machine Operator for Tonja Perez
[2024-11-19 07:02] LABS: Basophils # 0.1 10^3/uL (0.0-0.1); Basophils % 0.8 %; Eosinophils # 0.6 10^3/uL (0.0-0.8); Eosinophils % 4.7 %; Hematocrit 37.4 % (37-53); Lymphocytes # 1.5 10^3/uL (0.8-4.8); Lymphocytes % 11.1 %; Mean Corpuscular HGB Conc 32.9 g/dL (30-55); Mean Corpuscular Hemoglobin 31.1 pg (27-33); Mean Corpuscular Volume 94.7 fl (82-101); Mean Platelet Volume 10.5 fL (7.4-10.4); Monocytes % 7.5 %; Neutrophils # 9.74 10^3/uL (1.8-7.7); Nucleated Red Blood Cells % 0 %; Platelet Count 318 10^3/cmm (157-399); Red Blood Count 3.95 10^6/uL (3.85-5.65); Red Cell Distribution Width 12.6 % (12.1-15.1); White Blood Count 13.01 10^3/uL (3.29-11.43)
[2024-11-19 07:15] LABS: Troponin(5th) Baseline 16 ng/L (0-15)
[2024-11-19] MEDS: nitroglycerin 1 gm/inch oint Pkt 0.5 INCH TOPICAL (07:17)
[2024-11-19] MEDS: sodium chloride 0.9% 1,000 ML 999 ML IV (07:17)
[2024-11-19 07:21] LABS: Alanine Aminotransferase 25 U/L (0-41); Albumin Level 4.1 g/dL (3.5-5.2); Alkaline Phosphatase 116 U/L (40-130); Blood Urea Nitrogen 28 mg/dL (8-23); Carbon Dioxide 17 mmol/L (22-29); Chloride 102 mmol/L (98-107); Creatinine Clr Calc Pharmacy 56.2731; Globulin 3.1 g/dL (1.3-4.6); Glucose 151 mg/dL (65-115); Osmolality Calculated 286 mOsm/kg (285-295); Sodium 134 mmol/L (136-145); Total Bilirubin 0.3 mg/dL (0.15-1.2); Total Protein 7.2 g/dL (6.6-8.7)
[2024-11-19 07:24] LABS: Anion Gap 19.4 (5-19); Aspartate Amino Transferase 31 U/L (0-40); Potassium 4.4 mmol/L (3.5-5.1)
--- NOTE | 2024-11-19 07:33 | PC.NURSE ---
pt b/p 83/62 post nitro paste application, pt placed in trendelenburg. approx 700mL out of 1000mL infused at this time; continuing gtt wide open. Dr. Ocampo notified, states continue fluids and nitro paste. pt denies relief of pain.
[2024-11-19 08:06] LABS: Bilirubin Urine Negative (Negative); Blood Urine Negative (Negative); Glucose Urine UA Negative (Normal); Ketones Urine Negative (Negative); Leukocyte Esterase Urine Negative (Negative); Nitrate Urine Negative (Negative); Protein Urine Negative (Negative); Specific Gravity, Urine 1.018 (1.005-1.030); Urine Appearance Clear (CLEAR); Urine Color Yellow (Yellow)
[2024-11-19 08:09] LABS: Add Urine Microscopic? YES; Bacteria Urine None Seen /hpf; Hyaline Casts Urine 1.65 /lpf; RBC Urine 0-2 /hpf (0-2); Squamous Epithelial Cell Urine 0-5 /hpf (0-5); WBC Urine 0-5 /hpf (0-5)
--- NOTE | 2024-11-19 08:52 | ECG_ITS ---
[facility] Test Date: 2024-11-19 Pat Name: Zach Clark Department: Room: Gender: Male Record Systems Analyst: : 1960 Requested By: Uday [place] Order Number: [id number] Devi MD: Latrell Ross M.D. Measurements Intervals [place] Rate: 77 P: 5 NM: 188 QRS: 48 QRSD: 96 T: 7 QT: 349 QTc: 396 Interpretive Statements SINUS RHYTHM Compared to ECG 11/19/2024 07:41:08 No significant changes Electronically Signed On 11-19-2024 22:16:26 CDT by Latrell Ross M.D. [email or web address] [id number]
[2024-11-19 10:30] LABS: D Dimer 0.39 ug/mLFEU (0-0.59)
--- NOTE | 2024-11-19 10:55 | P.HP_ITS ---
Providers/Chief Complaint 2 Admitting Physician: Anders Pack Primary Care Provider: Ernesto Chavarria MD Chief Complaint: CP History of Present Illness The patient reports waking up between 2 and 3 AM with pain in the left side, left arm, shoulder, and chest. Initially attributing it to sleeping on the left side, the patient went back to sleep. Upon waking again after 5 AM, the pain had worsened, affecting the chest, arm, shoulder, and neck. The patient attempted to alleviate the pain by moving around but found no relief. The patient called their around 5:55 AM and subsequently called 911. The patient denies any previous episodes of similar pain or recent shoulder injury. The patient was on the roof replacing shingles on Sunday but did not engage in strenuous activity. The patient reports sinus drainage but denies fever, chills, nausea, vomiting, diarrhea, or any recent respiratory symptoms. The patient experiences pain with deep breaths but denies any pain with arm movement or pressure on the chest. The patient has a history of diabetes, HTN, and high cholesterol. The patient denies any history of heart attack or stroke. The patient reports a previous bad cold in October with significant coughing. The patient is aware of chronic kidney disease being monitored by Dr. Chavarria. The patient denies any allergies to medications but is allergic to shrimp. Review of Systems 2 Const: Denies: fever(s), chills, body aches or malaise ENMT: Denies: throat pain Card: Reports: chest pain; Denies: edema, pre-syncope or dyspnea on exertion Resp: Denies: dyspnea, productive cough, change in phlegm color or hemoptysis GI: Denies: abdominal pain, nausea, vomiting, diarrhea, constipation, hematochezia or melena : Denies: flank pain, difficulty urinating, urinary frequency or hematuria Musc: Denies: back pain, joint swelling or joint redness Skin/Breast: Denies: rash or new lesions Neuro: Denies: headache(s) or confusion Medications/Allergies Home Medications ?Medication ?Instructions ?Recorded ?Confirmed ?Last Taken ?Type multivitamin,[id number] 1 tab PO DAILY 06/18/20 11/19/24 11/18/24 History (Complete Multivitamin tablet) lansoprazole 30 mg capsule,delayed See Rx Instructions .Route 03/31/24 11/19/24 11/18/24 Rx release .COMPLEX #90 caps atorvastatin 10 mg tablet 10 mg PO DAILY #90 tabs 12/0 10/2711/19/24 11/18/24 Rx losartan 25 mg tablet 25 mg PO DAILY #90 tabs 09/0311/19/24 11/18/24 Rx metformin 1,000 mg tablet 1,000 mg PO BID 11/19/2411/18/24 History Allergies Allergy/AdvReac Type Severity Reaction Status Date / Time shrimp Allergy Unknown Unknown Verified 11/19/24 06:48 PFSH Acute 2 PFSH: Medical History Prostate cancer Elevated PSA DM2 (diabetes mellitus, type 2) Elevated cholesterol HTN (hypertension) Bursitis Vitamin D deficiency Surgical History History of shoulder surgery Right Hx of prostate biopsy Family History (Updated 11/19/24 @ 13:46 by Anders Pack MD) Brother Diabetes CAD (coronary artery disease) Father , AFTER A WHIPPLE PROCEDURE FOR TUMOR IN PANCREAS Cancer Mother Diabetes CABG AT AGE 86 CAD (coronary artery disease) Social History Smoking and tobacco/nicotine status: never used tobacco/nicotine Quit status (tobacco/nicotine): has quit using Year quit tobacco: ~1999 Alcohol intake: never Substance/Drug Use: never Adopted: No Caregiver/support person: No Lives independently: No Marital status: Current occupational status: retired Previous occupational history: [employer] - Retired Vitals/I&O/Wt Last Vital Signs Temp 98.3 F 11/19/24 06:43 Pulse 82 11/19/24 09:57 Resp 18 11/19/24 09:05 BP 117/82 11/19/24 09:57 Pulse Ox 98 11/19/24 09:57 O2 Del Method Room Air 11/19/24 06:43 11/18/24 11/19/24 11/19/24 22:59 06:59 14:59 Intake Total 0 / 0 Balance 0 / 0 Weight last 48 hrs Weight 86.183 kg Physical Exam 2 Const: COMMON NORMALS: patient oriented x3 and alert GENERAL APPEARANCE: c ooperative ORIENTATION/CONSCIOUSNESS: Yes awake HENMT: COMMON NORMALS: oropharynx normal Neck/C-Spine: COMMON NORMALS: no JVD Resp: COMMON NORMALS: normal respiratory effort and clear to auscultation bilaterally AUSCULTATION: clear to auscultation bilaterally Cardio: COMMON NORMALS: no JVD, regular rhythm, S1 normal heart sound present, S2 normal heart sound present and No murmurs present (Cardio) RHYTHM: regular rhythm HEART SOUNDS: S1 normal heart sound present and S2 normal heart sound present GI: COMMON NORMALS: Normal to inspection, nondistended, normoactive bowel sounds present, Soft to palpation and non-tender PALPATION: Yes Soft to palpation Extremity: COMMON NORMALS: no joint enlargement and no pedal edema N ARRATIVE EXTREMITY EXAM: No redness, bruising, swelling, or pain on active, passive range of motion or palpation of the left shoulder. Neuro: COMMON NORMALS: patient oriented x3 and moves all extremities S ENSORIUM/ORIENTATION: Yes alert Skin: COMMON NORMALS: no rashes or lesions noted GENERAL SKIN EXAM: no rashes or lesions noted Data 11/19/24 06:48 11/19/24 06:48 A&P Assessment and plan (1) Chest pain: The patient presents with left-sided chest pain associated with arm, shoulder, and neck pain, later on also noticed it was worsened by deep breaths. The pain is atypical for cardiac origin, given the relief with nitroglycerin and the nature of the pain. Initial studies show mildly elevated but flat troponin levels and nonspecific EKG findings. The patient has risk factors for coronary artery disease, including diabetes, HTN, and high cholesterol. The patient's brother had a heart attack at age 50 and now has a pacemaker. The patient's mother had a heart attack in 2013 at age 80 and underwent quadruple bypass surgery. Assess for possible unstable angina. Reviewed vitals, CBC, CMP, troponin, UA, chest x-ray, EKG, on my interpretation some T wave inversion in 2, some T wave flattening in 3. Nonspecific changes without clear evidence of acute ischemia. Follow-up official read. - Continue aspirin, statin. Add beta-skylar. - Order an echocardiogram to assess cardiac function. - Complete the troponin series and EKG monitoring. - Monitor telemetry and blood pressures. - Consider a stress test to assess cardiac perfusion. He is ambulatory. - Check D-dimer to evaluate for possible pulmonary embolism. - Plan for further testing if D-dimer is abnormal, considering kidney function limitations. - Advise the patient to avoid caffeine in preparation for a potential stress test. - Instruct the patient to report any recurrence of pain. Plan Chronic Kidney Disease: The patient is aware of chronic kidney disease being monitored by Dr. Chavarria. - Monitor kidney function, especially in the context of potential contrast use for imaging. Sinus Drainage: The patient reports ongoing sinus drainage, likely related to seasonal changes. Nasal corticosteroids as needed. DM2: On metformin at home. Consult carbohydrate diet. Sliding scale insulin. Monitor POC glucose. HTN: Monitor blood pressures. Continue losartan. HLD: Continue atorvastatin PDMP PDMP Reviewed: Not Reviewed Attestations 2 Medical Necessity Statement*: Place in observation for additional assessment management of anginal chest pain, assessment for possible unstable angina, initial minute with underlying cardiac risk factors as well as CKD. and High MDM includes amount and/or complexity of data reviewed/ordered [ previous or external records, resulted lab(s)/test(s), ordered lab(s)/test(s), independent test interpretation and other healthcare professional discussion] as documented Diagnoses Chest pain R07.9
[2024-11-19 11:59] LABS: Glucose Point of Care 116 mg/dL (70-110)
--- NOTE | 2024-11-19 11:59 | USCV_ITS ---
Zach Clark Age: 64 Gender: M : 1960 Exam Date: 11/19/2024 12:15 Ordering Phys: Anders Pack MD Technologist: [place] [facility] [place]: chest pain BP: 140 / 88 HR: 86 Rhythm: Sinus Technical Quality: Good MEASUREMENTS (Male / Female) Normal Values 2D ECHO LV Diastolic Diameter PLAX 3.8 cm 4.2 - 5.9 / 3.9 - 5.3 cm IVS Diastolic Thickness 1.5 cm 0.6 - 1.0 / 0.6 - 0.9 cm IVS Systolic Thickness 1.9 cm LVPW Diastolic Thickness 1.4 cm 0.6 - 1.0 / 0.6 - 0.9 cm LVPW Systolic Thickness 1.8 cm LVOT Diameter 2.1 cm LV Ejection Fraction 2D Teich 63.1 % LV Ejection Fraction MOD 4C 65.2 % LV Ejection Fraction MOD 2C 68.2 % LV Ejection Fraction 2C AL 68.3 % LA Diameter 3.2 cm RA Systolic Volume 4C AL 24.1 ml RA Systolic Volume 4C MOD 23.4 ml Aorta at Sinotubular Diameter 3.2 cm M-MODE LA Ao Ratio MM 1.0 AV Cusp Separation MM 1.9 cm DOPPLER AV Peak Velocity 166.0 cm/s LVOT Peak Velocity 104.0 cm/s AV Area Cont Eq vti 3.2 cm squared AV Area Cont Eq pk 2.3 cm squared MV Peak Velocity 101.0 cm/s MV Area PHT 3.2 cm squared Mitral E to A Ratio 1.0 TR Peak Velocity 140.0 cm/s TR Peak Gradient 7.8 mmHg TV Peak E Velocity 69.0 cm/s PV Peak Velocity 117.0 cm/s FINDINGS Left Ventricle Normal left ventricular size, systolic function and wall thickness, with no regional wall motion abnormalities. Left ventricular ejection fraction is estimated at 60 %. Grade I/IV diastolic dysfunction (abnormal relaxation filling pattern), normal to mildly elevated filling pressures. Right Ventricle The right ventricle is normal in size and function. Right Atrium The right atrium is normal in size. Left Atrium The left atrium is normal in size. Mitral Valve Structurally normal mitral valve without significant stenosis or prolapse. There is no mitral regurgitation. Aortic Valve Structurally normal aortic valve without significant sclerosis or stenosis. There is no aortic regurgitation. Tricuspid Valve Structurally normal tricuspid valve without significant stenosis or regurgitation. Pulmonary artery systolic pressure is normal. Pulmonic Valve Structurally normal pulmonic valve without significant stenosis. There is no pulmonic regurgitation. Pericardium Normal pericardium without effusion. Aorta Normal ascending aorta dimension. IVC The inferior vena cava appears normal. CONCLUSIONS Normal left ventricular size, systolic function and wall thickness, with no regional wall motion abnormalities. Left ventricular ejection fraction is estimated at 60 %. Grade I/IV diastolic dysfunction (abnormal relaxation filling pattern), normal to mildly elevated filling pressures. There is no pericardial effusion. No significant valve abnormalities. Right atrial pressure is around 5 mm of mercury. Pascale Lopes MD (Electronically Signed) Final Date: 19 November 2024 17:29 S
--- NOTE | 2024-11-19 12:52 | ECG_ITS ---
[facility] Date: 2024-[facility]19 Pat Name: Zach Clakr Department: Room: 107 Gender: Male Wind Development Director: : 1960 Requested By: Uday [place] Order Number: [id number] Devi MD: Latrell Ross M.D. Measurements Intervals [place] Rate: 84 P: 62 [place]: 161 QRS: 30 QRSD: 89 T: 70 QT: 343 QTc: 406 Interpretive Statements SINUS RHYTHM No previous ECG available for comparison Electronically Signed On 11-19-2024 22:16:27 CDT by Latrell Ross M.D. [id number]
[2024-11-19 13:23] LABS: Troponin 5 6HR 15.66 ng/L (0-15)
[2024-11-19 13:27] LABS: Troponin 5 6HR Delta -0.34 ng/L (0-12)
[2024-11-19] MEDS: pantoprazole DR 40 mg Tablet PO (13:39)
--- NOTE | 2024-11-19 14:59 | ECG_ITS ---
[facility] Test Date: 2024-11-19 Pat Name: Zach Clark Department: Room: 107 Gender: Male Diesel Power Mechanic: : 1960 Requested By: Anders Pack Order Number: [id number] Reading MD: Latrell Ross M.D. Measurements Intervals [place] Rate: 89 P: 49 [place]: 188 QRS: -22 QRSD: 89 T: 51 QT: 322 QTc: 392 Interpretive Statements SINUS RHYTHM BORDERLINE LEFT AXIS DEVIATION [QRS AXIS < -20] Compared to ECG 11/19/2024 08:59:47 No significant changes Electronically Signed On 11-19-2024 21:59:36 CDT by Latrell Ross M.D. [id number]
[2024-11-19] MEDS: fluticasone nasal spray 16gm Btl 2 SPRAY NASAL (15:03)
[2024-11-19] MEDS: morphine 4 mg/mL SDV 1 mL 2 MG IVP (15:04)
--- NOTE | 2024-11-19 16:03 | P.CONIM_ITS ---
<Statement entered by Tee Cabral M.D - 11/20/24 08:11> Patient was evaluated and cared for in conjunction with an advanced practice practitioner.? I personally examined the patient and reviewed the chart and all pertinent data including imaging, telemetry, and laboratory results.? I discussed the patient in detail with the advanced practice practitioner.? Please see? their note for complete consult note, testing results and agreed upon plan of care for the patient. Currently chest pain is minimal. GENERAL: Patient is alert, awake and oriented x3. HEART: Regular S1 and S2 LUNGS: Clear to auscultate bilaterally. CENTRAL NERVOUS SYSTEM: Grossly nonfocal. EXTREMITIES: Lower extremities without edema bilaterally. Patient's chest pain is atypical. At this time will recommend stress test as has elevated creatinine and pain is not typical. No significant uptrend of her troponin. Echo shows normal LV systolic function. If stress test is normal and patient continues having pain, ruling out PE will be appropriate Thank you for involving us with care of this patient. Please call with questions. Providers/Reason For Consult 2 Consulting Physician/Specialty*: Dr Cabral, cardiology Reason for Consult*: chest pain Requesting Physician: Dr Pack Attending Physician: Anders Pack Primary Care Provider: Ernesto Chavarria MD History of Present Illness History of Present Illness Zach Clark is a 64 year old male with past medical history of diabetes, hypertension, hyperlipidemia. He presented to the emergency department via EMS this morning with chest pain. He woke up with 3 AM to use the bathroom and noticed pain in the chest radiating to the arm, left shoulder and tightness in his neck. He went back to sleep and then woke up around 5 noting the pain is worsened in his chest and arm, accompanied by some shortness of breath. He noted that the character of the pain changed with inspiration and became sharp. It is difficult for him to describe the character of the pain it does not feel like pressure, heaviness, squeezing etc. but is there now and currently rated 4 out of 10. He did note some improvement in the pain whenever he was given the second sublingual nitroglycerin by EMS but it never resolved; the pain worsened when he sat up in the wheelchair to transfer from the ER to [facility] and has remained at the same intensity since then. He has been exercising by walking 3 times a week and he notes he did not feel any chest pain or pressure or shortness of breath while exerting however his notes that he was huffing and puffing when he came in the house from his walks, for the last 2 weeks. He recently had what seemed like allergies or a URI resulting in sinus drainage but has not been coughing in the last 2 weeks. No increase in weight, edema or orthopnea. No nausea, vomiting or diaphoresis. His weight usually fluctuates around 185 to 190 pounds. Blood pressure has been controlled at home with losartan. Troponin series:16->16->15. EKG shows sinus rhythm with borderline left axis deviation, non specific T wave changes. Echocardiogram is pending. Creatinine is 1.5, it appears baseline is around 1.3-1.5. Review of Systems 2 Const: Denies: fever(s), chills, change in weight, fatigue or diaphoresis Eyes: Denies: change in vision ENMT: Denies: epistaxis Card: Reports: chest pain and dyspnea on exertion; Denies: palpitations, irregular heart rhythm, edema, syncope, pre-syncope, orthopnea or leg pain with exertion Resp: Denies: dyspnea, productive cough or wheezing GI: Denies: nausea, vomiting, hematemesis, hematochezia or melena : Denies: hematuria Musc: Denies: extremity swelling Sal/Lymph: Denies: easy bruising or easy bleeding Medications/Allergies Home Medications ?Medication ?Instructions ?Recorded ?Confirmed ?Last Taken ?Type multivitamin,[id number] 1 tab PO DAILY 06/18/20 11/19/24 11/18/24 History (Complete Multivitamin tablet) lansoprazole 30 mg capsule,delayed See Rx Instructions .Route 03/31/24 11/19/24 11/18/24 Rx release .COMPLEX #90 caps atorvastatin 10 mg tablet 10 mg PO DAILY #90 tabs 12/10/2711/19/24 11/18/24 Rx losartan 25 mg tablet 25 mg PO DAILY #90 tabs 09/0311/19/24 11/18/24 Rx metformin 1,000 mg tablet 1,000 mg PO BID 11/19/2411/18/24 History Allergies Allergy/AdvReac Type Severity Reaction Status Date / Time shrimp Allergy Unknown Unknown Verified 11/19/24 06:48 Current Medications Generic Name Dose Route Start Last Admin Trade Name Freq PRN Reason Stop Dose Admin Fluticasone Propionate 2 spray 11/19/24 14:00 11/19/24 15:03 Fluticasone Nasal [place] 16gm Btl NASAL 2 spray DAILY BISI Administration Morphine Sulfate 2 mg 11/19/24 14:45 11/19/24 15:04 Morphine 4 Mg/Ml Sdv 1 Ml IVP 2 mg Q4H PRN Administration SEVERE PAIN Pantoprazole Sodium 40 mg 11/19/24 12:15 11/19/24 13:[address] 40 Mg Tablet PO 40 mg DAILY BISI Administration PFSH Acute 2 PFSH: Medical History Prostate cancer Elevated PSA DM2 (diabetes mellitus, type 2) Elevated cholesterol HTN (hypertension) Bursitis Vitamin D deficiency Surgical History History of shoulder surgery Right Hx of prostate biopsy Family History Brother Diabetes CAD (coronary artery disease) Father , AFTER A WHIPPLE PROCEDURE FOR TUMOR IN PANCREAS Cancer Mother Diabetes CABG AT AGE 86 CAD (coronary artery disease) Social History Smoking and tobacco/nicotine status: never used tobacco/nicotine Quit status (tobacco/nicotine): has quit using Year quit tobacco: ~2000 Alcohol intake: never Substance/Drug Use: never Adopted: No Caregiver/support person: No Lives independently: No Marital status: Current occupational status: retired Previous occupational history: [employer] - Retired Vitals/I&O/Wt Last Vital Signs Temp 98.3 F 11/19/24 06:43 Pulse 84 11/19/24 14:08 Resp 17 11/19/24 14:08 BP 148/78 11/19/24 14:08 Pulse Ox 93 11/19/24 14:08 O2 Del Method Room Air 11/19/24 12:00 11/19/24 11/19/24 11/19/24 06:59 14:59 22:59 Intake Total 0 / 0 360 / 1360 1000 / 1360 Balance 0 / 0 360 / 1360 1000 / 1360 Weight last 48 hrs Weight 190 lb Weight 190 lb Physical Exam 2 Const: COMMON NORMALS: no acute distress and patient oriented x3 GENERAL APPEARANCE: cooperative and comfortable ORIENTATION/CONSCIOUSNESS: Yes awake, Yes oriented to person, Yes oriented to place and Yes oriented to time Chest: COMMONS NORMALS: normal inspection of the chest and normal palpation of entire chest wall CHEST: Yes Symmetrical chest wall rise Resp: COMMON NORMALS: normal respiratory effort, No retractions, No use of accessory muscles and clear to auscultation bilaterally EFFORT & INSPECTION: Yes symmetric chest movement AUSCULTATION: clear to auscultation bilaterally Cardio: COMMON NORMALS: regular rate, regular rhythm, S1 normal heart sound present, S2 normal heart sound present, No gallops present (Cardio), No clicks present (Cardio), No murmurs present (Cardio) and No rub (Cardio) RATE: r egular rate RHYTHM: regular rhythm HEART SOUNDS: S1 normal heart sound present and S2 normal heart sound present PERIPHERAL PULSES: radial pulses present Extremity: COMMON NORMALS: no pedal edema Neuro: COMMON NORMALS: patient oriented x3 and moves all extremities S ENSORIUM/ORIENTATION: Yes oriented to person, Yes oriented to place and Yes oriented to time Data 11/19/24 06:48 11/19/24 06:48 A&P Assessment and plan (1) Chest pain: (2) HTN (hypertension): (3) Hyperlipidemia: (4) DM2 (diabetes mellitus, type 2): (5) CKD (chronic kidney disease) stage 3, GFR 30-59 ml/min: Plan Troponin has been flat and only slightly elevated, EKG shows nonspecific changes. Chest pain has been present the entire day, with only modest improvement with nitroglycerin. It has been quite difficult for him to describe other than being present except for the sharp pain that occurs with inspiration. He did not notice the shortness of breath with exertion but his did, no other anginal equivalent. As his creatinine is elevated to 1.5, would recommend stress test tomorrow for further evaluation, unless chest pain worsens or echocardiogram is abnormal. PDMP PDMP Reviewed: Not Reviewed Coding Level of Care Code Acute Code for g Fwd Diagnoses Chest pain R07.9 HTN (hypertension) I10 Hyperlipidemia E78.5 DM2 (diabetes mellitus, type 2) E11.9 CKD (chronic kidney disease) stage 3, GFR 30-59 ml/min N18.30
[2024-11-19 16:49] LABS: Glucose Point of Care 116 mg/dL (70-110)
[2024-11-19] MEDS: metoprolol tartrate 25 mg Tablet PO (20:28)
[2024-11-19 20:52] LABS: Glucose Point of Care 157 mg/dL (70-110)
[2024-11-20] VITALS (7 sets, daily range): BP systolic 103–124; BP diastolic 67–75; PULSE 68–78; RESP 13–21; TEMP 36.1–37.1; O2SAT 96–98
[2024-11-20 03:46] LABS: Basophils # 0.1 10^3/uL (0.0-0.1); Eosinophils # 0.4 10^3/uL (0.0-0.8); Eosinophils % 4.1 %; Hematocrit 33.5 % (37-53); Lymphocytes # 1.6 10^3/uL (0.8-4.8); Lymphocytes % 16.6 %; Mean Corpuscular HGB Conc 32.5 g/dL (30-55); Mean Corpuscular Hemoglobin 30.6 pg (27-33); Mean Corpuscular Volume 94.1 fl (82-101); Mean Platelet Volume 10.4 fL (7.4-10.4); Monocytes # 1.4 10^3/uL (0.2-0.9); Monocytes % 14.8 %; Neutrophils # 6.09 10^3/uL (1.8-7.7); Nucleated Red Blood Cells % 0 %; Platelet Count 281 10^3/cmm (157-399); Red Blood Count 3.56 10^6/uL (3.85-5.65); Red Cell Distribution Width 12.5 % (12.1-15.1); White Blood Count 9.68 10^3/uL (3.29-11.43)
[2024-11-20 04:02] LABS: Anion Gap 15.3 (5-19); Blood Urea Nitrogen 26 mg/dL (8-23); Calcium 8.7 mg/dL (8.5-10.5); Carbon Dioxide 21 mmol/L (22-29); Chloride 106 mmol/L (98-107); Creatinine Clr Calc Pharmacy 49.6527; Glomerular Filtration Rate 40.7 mL/min (90-130); Glucose 134 mg/dL (65-115); Osmolality Calculated 293 mOsm/kg (285-295); Potassium 4.3 mmol/L (3.5-5.1); Sodium 138 mmol/L (136-145)
[2024-11-20 06:22] LABS: Glucose Point of Care 123 mg/dL (70-110)
[2024-11-20] MEDS: aspirin 325 mg Tablet PO (08:11)
[2024-11-20] MEDS: ATORVASTATIN 10 MG TABLET PO (08:12)
[2024-11-20] MEDS: pantoprazole DR 40 mg Tablet PO (08:12)
[2024-11-20] MEDS: losartan 50 mg Tablet 25 MG PO (08:12)
[2024-11-20] MEDS: metoprolol tartrate 25 mg Tablet PO ×2 (08:12→21:52)
--- NOTE | 2024-11-20 08:15 | ECG_ITS ---
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 Interpretive Statements LEXISCAN: Procedure: At the baseline, the blood pressure was 122/75 mmHg with a heart rate of 67 bpm. The electrocardiogram showed normal sinus rhythm, normal axis with normal ST and T's. The Lexiscan was infused over a period of 20 seconds. A total of 0.4 mg of Lexiscan was infused. The stress phase was continued for a total of 5 minutes. Heart rate was at the end of stress phase was 85 bpm and a blood pressure of 119/70 mmHg. The EKG at the peak infusion revealed normal sinus rhythm with no significant ST-T wave changes. Sestamibi was injected 20 seconds after the Lexiscan infusion. Blood pressure at the end of recovery phase was 124/73 mmHg with a heart rate of 80 bpm. Conclusion: 1. Normal EKG response to Lexiscan infusion 2. No Lexiscan induced chest pain or cardiac arrhythmia. 3. Normal blood pressure and heart rate response. 4. Sestamibi/sestamibi perfusion scan pending; see separate report. Electronically Signed On 11-23-2024 01:27:30 CDT by Tee Cabral M.D. [email or web address]
--- NOTE | 2024-11-20 09:46 | P.PN_ITS ---
<Statement entered by Tee Cabral M.D - 11/22/24 08:07> Patient was evaluated and cared for in conjunction with an advanced practice practitioner.? I personally examined the patient and reviewed the chart and all pertinent data including imaging, telemetry, and laboratory results.? I discussed the patient in detail with the advanced practice practitioner.? Please see? their note for complete progress note, testing results and agreed upon plan of care for the patient. Chest pain is better now. Plan for stress test tomorrow. GENERAL: Patient is alert, awake and oriented x3. HEART: Regular S1 and S2 LUNGS: Clear to auscultate bilaterally. CENTRAL NERVOUS SYSTEM: Grossly nonfocal EXTREMITIES: Lower extremities with out edema bilaterally. Subjective 2 Subjective: He had a episode of chest pain during the night last night which was short- lived, otherwise this morning has not had any chest pain or pressure. The sharp pain he was experiencing with inspiration is also resolved. Creatinine today up to 1.7. Blood pressure well-controlled. Stress test tomorrow. N.p.o. after midnight tonight. He may eat today. Vitals/I&O/Wt Last Vital Signs Temp 98.1 F 11/20/24 07:21 Pulse 77 11/20/24 07:21 Resp 19 H 11/20/24 07:21 BP 121/74 11/20/24 07:21 Pulse Ox 96 11/20/24 07:21 O2 Del Method Room Air 11/20/24 07:21 11/19/24 11/20/24 11/20/24 22:59 06:59 14:59 Intake Total 1810 / 2170 0 / 2170 240 / 240 Output Total 0 / 0 Balance 1810 / 2170 0 / 2170 240 / 240 Weight last 48 hrs Weight 190 lb 3.2 oz Weight 190 lb Weight 190 lb Physical Exam 2 Const: COMMON NORMALS: no acute distress and patient oriented x3 GENERAL APPEARANCE: cooperative and comfortable ORIENTATION/CONSCIOUSNESS: Yes awake, Yes oriented to person, Yes oriented to place and Yes oriented to time Chest: COMMONS NORMALS: normal inspection of the chest and normal palpation of entire chest wall CHEST: Yes Symmetrical chest wall rise Resp: COMMON NORMALS: normal respiratory effort, No retractions, No use of accessory muscles and clear to auscultation bilaterally EFFORT & INSPECTION: Yes symmetric chest movement AUSCULTATION: clear to auscultation bilaterally Cardio: COMMON NORMALS: regular rate, regular rhythm, S1 normal heart sound present, S2 normal heart sound present, No gallops present (Cardio), No clicks present (Cardio), No murmurs present (Cardio) and No rub (Cardio) RATE: r egular rate RHYTHM: regular rhythm HEART SOUNDS: S1 normal heart sound present and S2 normal heart sound present PERIPHERAL PULSES: radial pulses present Extremity: COMMON NORMALS: no pedal edema Neuro: COMMON NORMALS: patient oriented x3 and moves all extremities S ENSORIUM/ORIENTATION: Yes oriented to person, Yes oriented to place and Yes oriented to time Data 11/20/24 03:15 11/20/24 03:15 A&P Assessment and plan (1) Chest pain: (2) HTN (hypertension): (3) Hyperlipidemia: (4) DM2 (diabetes mellitus, type 2): (5) CKD (chronic kidney disease) stage 3, GFR 30-59 ml/min: Plan Chest pain seems to have improved, plan for stress test tomorrow to complete the evaluation. Echocardiogram showed normal LVEF 60%. N.p.o. after midnight tonight PDMP PDMP Reviewed: Not Reviewed Attestations 2 Medical Necessity Statement*: Stress test tomorrow Coding Level of Care Code Acute Code for [facility] Diagnoses Chest pain R07.9 HTN (hypertension) I10 Hyperlipidemia E78.5 DM2 (diabetes mellitus, type 2) E11.9 CKD (chronic kidney disease) stage 3, GFR 30-59 ml/min N18.30
--- NOTE | 2024-11-20 15:30 | P.PN_ITS ---
Subjective 2 Subjective: This morning he is doing better. So far chest pain has resolved. Vitals/I&O/Wt Last Vital Signs Temp 96.9 F L 11/20/24 11:19 Pulse 68 11/20/24 11:19 Resp 13 11/20/24 11:19 BP 117/67 11/20/24 11:19 Pulse Ox 98 11/20/24 11:19 O2 Del Method Room Air 11/20/24 11:19 11/20/24 11/20/24 11/20/24 06:59 14:59 22:59 Intake Total 0 / 2170 720 / 720 Output Total 0 / 0 Balance 0 / 2170 720 / 720 Weight last 48 hrs Weight 86.273 kg Weight 86.183 kg Weight 86.183 kg Physical Exam 2 Narrative: Accompanied by his . Const: COMMON NORMALS: patient oriented x3 and alert GENERAL APPEARANCE: c ooperative ORIENTATION/CONSCIOUSNESS: Yes awake HENMT: COMMON NORMALS: oropharynx normal Neck/C-Spine: COMMON NORMALS: no JVD Resp: COMMON NORMALS: normal respiratory effort and clear to auscultation bilaterally AUSCULTATION: clear to auscultation bilaterally Cardio: COMMON NORMALS: no JVD, regular rhythm, S1 normal heart sound present, S2 normal heart sound present and No murmurs present (Cardio) RHYTHM: regular rhythm HEART SOUNDS: S1 normal heart sound present and S2 normal heart sound present GI: COMMON NORMALS: Normal to inspection, nondistended, normoactive bowel sounds present, Soft to palpation and non-tender PALPATION: Yes Soft to palpation Extremity: COMMON NORMALS: no joint enlargement and no pedal edema Neuro: COMMON NORMALS: patient oriented x3 and moves all extremities S ENSORIUM/ORIENTATION: Yes alert Skin: COMMON NORMALS: no rashes or lesions noted GENERAL SKIN EXAM: no rashes or lesions noted Data 11/20/24 03:15 11/20/24 03:15 A&P Assessment and plan (1) Chest pain: Reviewed troponin series. Reviewed echocardiogram. Reviewed D-dimer. Discussed with him. Low risk/suspicion for PE. Reviewed cardiology note. Discussed with extruder operator multiple. Appreciate evaluation. Plans for additional assessment with stress test. Continue aspirin, beta-skylar, statin, monitor on telemetry. Nitroglycerin as needed. Had required IV morphine for severe breakthrough pain, will keep for now. Reassess. Plan Chronic Kidney Disease: Reviewed BUN, creatinine. Repeat chemistry. The patient is aware of chronic kidney disease being monitored by Dr. Chavarria. - Monitor kidney function, especially in the context of potential contrast use for imaging. Sinus Drainage: The patient reports ongoing sinus drainage, likely related to seasonal changes. Nasal corticosteroids as needed. DM2: Reviewed POC glucose. On metformin at home. Consult carbohydrate diet. Sliding scale insulin. Monitor POC glucose. HTN: Monitor blood pressures. Continue losartan. HLD: Continue atorvastatin PDMP PDMP Reviewed: Not Reviewed Attestations 2 Medical Necessity Statement*: Continue hospitalization for assessment of angina and a gentleman with multiple cardiac risk factors. and High MDM includes amount and/or complexity of data reviewed/ordered [ previous or external records, resulted lab(s)/test(s), ordered lab(s)/test(s) and other healthcare professional discussion] and described risk of complication, morbidity or mortality of management as documented Diagnoses Chest pain R07.9
[2024-11-21] VITALS (7 sets, daily range): BP systolic 114–141; BP diastolic 72–96; PULSE 63–76; RESP 17–21; TEMP 36.5–36.8; O2SAT 97–98
[2024-11-21 05:22] LABS: Basophils # 0.1 10^3/uL (0.0-0.1); Eosinophils # 0.9 10^3/uL (0.0-0.8); Hematocrit 37.4 % (37-53); Lymphocytes # 1.3 10^3/uL (0.8-4.8); Lymphocytes % 13.3 %; Mean Corpuscular HGB Conc 31.8 g/dL (30-55); Mean Corpuscular Hemoglobin 30.6 pg (27-33); Mean Corpuscular Volume 96.1 fl (82-101); Mean Platelet Volume 9.9 fL (7.4-10.4); Monocytes % 9.9 %; Neutrophils # 6.48 10^3/uL (1.8-7.7); Nucleated Red Blood Cells % 0 %; Platelet Count 289 10^3/cmm (157-399); Red Blood Count 3.89 10^6/uL (3.85-5.65); Red Cell Distribution Width 12.8 % (12.1-15.1); White Blood Count 9.82 10^3/uL (3.29-11.43)
[2024-11-21 05:45] LABS: Anion Gap 16.6 (5-19); Blood Urea Nitrogen 26 mg/dL (8-23); Calcium 9.4 mg/dL (8.5-10.5); Carbon Dioxide 22 mmol/L (22-29); Chloride 104 mmol/L (98-107); Creatinine Clr Calc Pharmacy 55.9635; Glomerular Filtration Rate 43.6 mL/min (90-130); Glucose 152 mg/dL (65-115); Osmolality Calculated 294 mOsm/kg (285-295); Potassium 4.6 mmol/L (3.5-5.1); Sodium 138 mmol/L (136-145)
[2024-11-21] MEDS: regadenoson 0.4 Mg/5 ml Syringe IVP (07:16)
--- NOTE | 2024-11-21 08:06 | P.PN_ITS ---
<Statement entered by Tee Cabral M.D - 11/22/24 08:23> Patient was evaluated and cared for in conjunction with an advanced practice practitioner.? I personally examined the patient and reviewed the chart and all pertinent data including imaging, telemetry, and laboratory results.? I discussed the patient in detail with the advanced practice practitioner.? Please see? their note for complete progress note, testing results and agreed upon plan of care for the patient. Patient is chest pain. Stress test not showing significant ischemia. Medical therapy GENERAL: Patient is alert, awake and oriented x3. HEART: Regular S1 and S2 LUNGS: Clear to auscultate bilaterally. CENTRAL NERVOUS SYSTEM: Grossly nonfocal. EXTREMITIES: Lower extremities with out edema bilaterally. Subjective 2 Subjective: He had a stress test this morning, eating breakfast and feeling well. No chest pain reported. No ischemia noted on the stress test. Vitals/I&O/Wt Last Vital Signs Temp 98.2 F 11/21/24 04:00 Pulse 76 11/21/24 07:34 Resp 18 11/21/24 04:00 BP 124/76 11/21/24 07:34 Pulse Ox 98 11/21/24 04:00 O2 Del Method Room Air 11/21/24 04:00 11/20/24 11/21/24 11/21/24 22:59 06:59 14:59 Intake Total 930 / 2130 480 / 2130 480 / 480 Balance 930 / 2130 480 / 2130 480 / 480 Weight last 48 hrs Weight 217 lb 2.485 oz Weight 190 lb 3.2 oz Weight 190 lb Physical Exam 2 Const: COMMON NORMALS: no acute distress and patient oriented x3 GENERAL APPEARANCE: cooperative and comfortable ORIENTATION/CONSCIOUSNESS: Yes awake, Yes oriented to person, Yes oriented to place and Yes oriented to time Chest: COMMONS NORMALS: normal inspection of the chest and normal palpation of entire chest wall CHEST: Yes Symmetrical chest wall rise Resp: COMMON NORMALS: normal respiratory effort, No retractions, No use of accessory muscles and clear to auscultation bilaterally EFFORT & INSPECTION: Yes symmetric chest movement AUSCULTATION: clear to auscultation bilaterally Cardio: COMMON NORMALS: regular rate, regular rhythm, S1 normal heart sound present, S2 normal heart sound present, No gallops present (Cardio), No clicks present (Cardio), No murmurs present (Cardio) and No rub (Cardio) RATE: r egular rate RHYTHM: regular rhythm HEART SOUNDS: S1 normal heart sound present and S2 normal heart sound present PERIPHERAL PULSES: radial pulses present Extremity: COMMON NORMALS: no pedal edema Neuro: COMMON NORMALS: patient oriented x3 and moves all extremities S ENSORIUM/ORIENTATION: Yes oriented to person, Yes oriented to place and Yes oriented to time Data 11/21/24 05:06 11/21/24 05:06 A&P Assessment and plan (1) Chest pain: (2) HTN (hypertension): (3) Hyperlipidemia: Plan Stress test did not show ischemia, LVEF is normal. No chest pain since yesterday. He may be discharged home with medical management of hypertension and chest pain. PDMP PDMP Reviewed: Not Reviewed Attestations 2 Medical Necessity Statement*: Possible discharge, per hospitalist Coding Level of Care Code Acute Code for g Fwd Diagnoses Chest pain R07.9 HTN (hypertension) I10 Hyperlipidemia E78.5
--- NOTE | 2024-11-21 08:15 | NMCV_ITS ---
NM lenin perf SPECT r/s* [id number] Zach Clark Age: 64 Gender: M : 1960 Exam Date: 11/21/2024 06:29 Ordering Phys: Dilcia Ramsey Technologist: ARACELI Andres Exam Location: [facility] Indications: CP STRESS TEST Please see separate stress test report in [facility] for full findings IMAGE PROTOCOL Rest/Stress 1 Lexiscan Day Radiopharmaceutical Dose (mCi) Administration Site Administered by Rest: Tc-99m 10.9 IV Niurka Chino, REVENUE LIAISON Sestamibi Stress:Tc-99m 33 IV Niurka Lulú, [employer]UE LIAISON Sestamibi Rest: 21-Nov-2024 60 Discovery 630 Stress: 21-Nov-2024 30 Discovery 630 0.4mg Lexiscan. Images obtained in supine and prone position. SPECT RESULTS Technical Quality: Good Raw Data Analysis: Normal Image Corrections: No attenuation or motion correction applied Summed Stress Score: 4 Summed Rest Score: 3 Summed Difference Score: 1 PERFUSION FINDINGS There is reduced radiotracer uptake seen in inferior wall which improves on prone imaging. 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 FUNCTIONAL RESULTS (calculated via Gated SPECT) Stress Image LV EF (%): 71 Stress EDV (mL):76 TID: 0.91 Stress ESV (mL):22 FUNCTIONAL FINDINGS: There is normal left ventricular systolic function. IMPRESSIONS 1. Small area of prior infarct vs attenuation artifact in the RCA territory 2. LV systolic function is normal Tee Cabral MD (Electronically Signed) Final Date: 21 November 2024 09:12 S
[2024-11-21] MEDS: metoprolol tartrate 25 mg Tablet PO (08:37)
[2024-11-21] MEDS: aspirin 325 mg Tablet PO (08:37)
[2024-11-21] MEDS: ATORVASTATIN 10 MG TABLET PO (08:37)
[2024-11-21] MEDS: losartan 50 mg Tablet 25 MG PO (08:37)
[2024-11-21] MEDS: pantoprazole DR 40 mg Tablet PO (08:38)
[2024-11-21] MEDS: fluticasone nasal spray 16gm Btl 2 SPRAY NASAL (08:38)
--- NOTE | 2024-11-21 09:12 | PC.NURSE ---
return from cardiac stress test at 0845..tolerated procedure well
--- NOTE | 2024-11-21 09:58 | P.DS_ITS ---
Discharge Providers Date of Admission: 11/19/24 10:26 Date of Discharge: November 21, 2024 Attending Provider at Admission: Anders Pack Attending Provider at Discharge: Anders Pack Primary Care Provider: Ernesto Chavarria MD Diagnoses at Discharge Discharge Diagnosis (1) Chest pain: Status: Acute (2) HTN (hypertension): Status: Acute (3) Hyperlipidemia: Status: Acute Reason for Visit Reason for Visit: CP Brief History: The patient reports waking up between 2 and 3 AM with pain in the left side, left arm, shoulder, and chest. Initially attributing it to sleeping on the left side, the patient went back to sleep. Upon waking again after 5 AM, the pain had worsened, affecting the chest, arm, shoulder, and neck. The patient attempted to alleviate the pain by moving around but found no relief. The patient called their around 5:55 AM and subsequently called 911. The patient denies any previous episodes of similar pain or recent shoulder injury. The patient was on the roof replacing shingles on Sunday but did not engage in strenuous activity. The patient reports sinus drainage but denies fever, chills, nausea, vomiting, diarrhea, or any recent respiratory symptoms. The patient experiences pain with deep breaths but denies any pain with arm movement or pressure on the chest. The patient has a history of diabetes, HTN, and high cholesterol. The patient denies any history of heart attack or stroke. The patient reports a previous bad cold in October with significant coughing. The patient is aware of chronic kidney disease being monitored by Dr. Chavarria. The patient denies any allergies to medications but is allergic to shrimp. Hospital Course Hospital Course He was hospitalized on cardiac stepdown unit for additional assessment and management. Troponin EKG series were completed, did not show elevation. D- dimer was checked and was normal. He received aspirin, beta-skylar, statin, blood pressure and blood glucose were monitored. With additional workup including echocardiogram which showed normal ejection fraction, grade 1 diastolic dysfunction, no regional wall motion abnormality. No pericardial effusion. Unremarkable valves. With further recurrence of chest pain, with possible unstable angina, was treated with anticoagulation, assessed by c ardiology. His symptoms did resolve. On reassessment by cardiology he proceeded to further assessment by Lexiscan myocardial perfusion scan with finding of small area of prior infarct versus attenuation artifact in the RCA territory without active ischemia. He remains chest pain-free and feeling well. Doing well with ambulation. Was cleared for discharge by cardiology. He is asked to continue aspirin, beta-skylar. Statin dose was increased from 10 to 40 mg. He knows to watch out for symptoms of myopathy. Please reassess his liver parameters. Continued optimization of hypertension with losartan, small dose metoprolol is added 12.5 mg extended release daily. We discussed holding parameters with him in case of blood pressure below 110/55, to hold his blood pressure medication to avoid hypotension as blood pressure did show some fluctuation sometimes into the low 100s, one reading as low as 83/62. He is continued on metformin. Please follow-up and continue optimization of cardiovascular risk factors. He knows to seek medical attention in case of worsening or new concerning symptoms. He is asked to follow-up for reassessment with cardiology. Physical Exam Narrative: Accompanied by his . Dressed in street clothes. Const: COMMON NORMALS: patient oriented x3 and alert GENERAL APPEARANCE: cooperative ORIENTATION/CONSCIOUSNESS: Yes awake HENMT: COMMON NORMALS: oropharynx normal Neck/C-Spine: COMMON NORMALS: no JVD Resp: COMMON NORMALS: normal respiratory effort and clear to auscultation bilaterally AUSCULTATION: clear to auscultation bilaterally Cardio: COMMON NORMALS: no JVD, regular rhythm, S1 normal heart sound present, S2 normal heart sound present and No murmurs present (Cardio) RHYTHM: regular rhythm HEART SOUNDS: S1 normal heart sound present and S2 normal heart sound present GI: COMMON NORMALS: Normal to inspection, nondistended, normoactive bowel sounds present, Soft to palpation and non-tender PALPATION: Yes Soft to palpation Extremity: COMMON NORMALS: no joint enlargement and no pedal edema Neuro: COMMON NORMALS: patient oriented x3 and moves all extremities SENSORIUM/ORIENTATION: Yes alert Skin: COMMON NORMALS: no rashes or lesions noted GENERAL SKIN EXAM: no rashes or lesions noted Discharge Data Studies Completed and Pending Completed Studies During Hospitalization Category Date Time Status Sestamibi Stress Test Request Routine Exams 11/20/24 08:15 Draft XR chest 1V portable [id number] Stat Exams 11/19/24 06:51 Completed NM lenin perf SPECT r/s* [id number] Routine Nuc Med 11/21/24 08:15 Completed CV. echo complete* [id number] Routine Ultrasound 11/19/24 11:59 Completed Pending at discharge Category Date Time Status Basic Metabolic Panel AM LABS Lab 11/22/24 04:00 Ordered Complete Blood Count w/Auto AM LABS Lab 11/22/24 04:00 Ordered Radiology Impressions Chest X-Ray 11/19/24 06:51 IMPRESSION: No acute pulmonary finding. Laboratory Results WBC 9.82 10^3/uL (3.29-11.43) 11/21/24 05:06 RBC 3.89 10^6/uL (3.85-5.65) 11/21/24 05:06 Hgb 11.90 g/dL (11.27-16.99) 11/21/24 05:06 Hct 37.4 % (37-53) 11/21/24 05:06 MCV 96.1 fl (82-101) 11/21/24 05:06 MCH 30.6 pg (27-33) 11/21/24 05:06 MCHC 31.8 g/dL (30-55) 11/21/24 05:06 RDW 12.8 % (12.1-15.1) 11/21/24 05:06 Plt Count 289 10^3/cmm (157-399) 11/21/24 05:06 MPV 9.9 fL (7.4-10.4) 11/21/24 05:06 Neut % (Auto) 66.0 % 11/21/24 05:06 Lymph % (Auto) 13.3 % 11/21/24 05:06 Graham % (Auto) 9.9 % 11/21/24 05:06 Eos % (Auto) 9.0 % 11/21/24 05:06 Baso % (Auto) 1.0 % 11/21/24 05:06 Neut # (Auto) 6.48 10^3/uL (1.8-7.7) 11/21/24 05:06 Lymph # (Auto) 1.3 10^3/uL (0.8-4.8) 11/21/24 05:06 Graham # (Auto) 1.0 10^3/uL (0.2-0.9) H 11/21/24 05:06 Eos # (Auto) 0.9 10^3/uL (0.0-0.8) H 11/21/24 05:06 Baso # (Auto) 0.1 10^3/uL (0.0-0.1) 11/21/24 05:06 Nucleated RBC % (auto) 0 % 11/21/24 05:06 Nucleated RBCs # 0.0 /100WBC 11/21/24 05:06 D-Dimer 0.39 ug/mLFEU (0-0.59) 11/19/24 06:48 Sodium 138 mmol/L (136-145) 11/21/24 05:06 Potassium 4.6 mmol/L (3.5-5.1) 11/21/24 05:06 Chloride 104 mmol/L (98-107) 11/21/24 05:06 Carbon Dioxide 22 mmol/L (22-29) 11/21/24 05:06 Anion Gap 16.6 (5-19) 11/21/24 05:06 BUN 26 mg/dL (8-23) H 11/21/24 05:06 Creatinine 1.6 mg/dL (0.7-1.2) H 11/21/24 05:06 GFR Calculation 43.6 mL/min (90-130) L 11/21/24 05:06 Glucose 152 mg/dL (65-115) H 11/21/24 05:06 POC Glucose 123 mg/dL (70-110) H 11/20/24 06:16 Calculated Osmolality 294 mOsm/kg (285-295) 11/21/24 05:06 Calcium 9.4 mg/dL (8.5-10.5) 11/21/24 05:06 Total Bilirubin 0.3 mg/dL (0.15-1.2) 11/19/24 06:48 AST 31 U/L (0-40) 11/19/24 06:48 ALT 25 U/L (0-41) 11/19/24 06:48 Alkaline Phosphatase 116 U/L (40-130) 11/19/24 06:48 Troponin T Baseline 16 ng/L (0-15) H 11/19/24 06:48 Troponin T 120 Minute 16.10 ng/L (0-15) H 11/19/24 08:41 Delta Troponin T 0.10 ABS# (0-10) 11/19/24 08:41 Troponin T Hi Sens 6Hr 15.66 ng/L (0-15) H 11/19/24 12:42 Troponin T Hi Sens 6Hr Delta -0.34 ng/L (0-12) L 11/19/24 12:42 Total Protein 7.2 g/dL (6.6-8.7) 11/19/24 06:48 Albumin 4.1 g/dL (3.5-5.2) 11/19/24 06:48 Globulin 3.1 g/dL (1.3-4.6) 11/19/24 06:48 Urine Color Yellow (Yellow) 11/19/24 07:57 Urine Appearance Clear (CLEAR) 11/19/24 07:57 Urine pH 5.0 (5-7) 11/19/24 07:57 Ur Specific [place] 1.018 (1.005-1.030) 11/19/24 07:57 Urine Protein Negative (Negative) 11/19/24 07:57 Urine Glucose (UA) Negative (Normal) 11/19/24 07:57 Urine Ketones Negative (Negative) 11/19/24 07:57 Urine Blood Negative (Negative) 11/19/24 07:57 Urine Nitrate Negative (Negative) 11/19/24 07:57 Urine Bilirubin Negative (Negative) 11/19/24 07:57 Urine Urobilinogen 1.0 mg/dL (Negative) 11/19/24 07:57 Ur Leukocyte Esterase Negative (Negative) 11/19/24 07:57 Urine RBC 0-2 /hpf (0-2) 11/19/24 07:57 Urine WBC 0-5 /hpf (0-5) 11/19/24 07:57 Ur Squamous Epith Cells 0-5 /hpf (0-5) 11/19/24 07:57 Amorphous Sediment Not Reportable 11/19/24 07:57 Urine Bacteria None seen /hpf (NONE) 11/19/24 07:57 Hyaline Casts 1.65 /lpf 11/19/24 07:57 Vitals Last Vital Signs Temp 97.7 F 11/21/24 08:00 Pulse 70 11/21/24 08:00 Resp 17 11/21/24 08:00 BP 141/96 11/21/24 08:37 Pulse Ox 98 11/21/24 08:00 O2 Del Method Room Air 11/21/24 08:00 Discharge Plan Discharge Patient Disposition: Home Condition: Stable Prescriptions: New aspirin 81 mg capsule 81 mg PO DAILY Qty: 90 0RF atorvastatin [Lipitor] 40 mg tablet 40 mg PO QPM Qty: 90 0RF metoprolol succinate 25 mg tablet extended release 24 hr 12.5 mg PO DAILY Qty: 45 0RF nitroglycerin 0.4 mg tablet, sublingual 0.4 mg sublingual Q5M PRN (Reason: chest pain) Qty: 25 0RF Rx Instructions: do not exceed 3 doses per episode Continued Complete Multivitamin Tablet 1 tab PO DAILY lansoprazole 30 mg capsule,delayed release(DR/EC) See Rx Instructions .ROUTE .COMPLEX Qty: 90 3RF Dose Instruction: take 1 capsule BY MOUTH EVERY MORNING FOR STOMACH *TAKE BEFORE EATING* Rx Instructions: take 1 capsule BY MOUTH EVERY MORNING FOR STOMACH *TAKE BEFORE EATING* losartan 25 mg tablet 25 mg PO DAILY Qty: 90 3RF metformin 1,000 mg tablet 1,000 mg PO BID Rx Instructions: TAKE 1 TABLET BY MOUTH TWICE DAILY Discontinued atorvastatin 10 mg tablet 10 mg PO DAILY Qty: 90 3RF Discharge Orders: Discharge Order (Routine); Ordered 11/21/24 Ordered By: Anders Pack Referrals: Dilcia Ramsey FNP [Nurse Practitioner] - 12/09/24 2:00 pm ( ) Ernesto Chavarria MD [Primary Care Provider] - 11/25/24 11:30 am Discharge Diet: Cardiac and Diabetic Patient Instructions: Metoprolol (By mouth), Aspirin (By mouth), Nitroglycerin, Rapid Release (By mouth) (NitroMist, Nitrolingual,..., Atorvastatin (By mouth), Coronary Artery Disease (GEN), Chronic Kidney Disease (DC), Chest Pain Stoplight, Opioid Safety Activity Restrictions/Additional Instructions: Follow-up with your primary doctor for reassessment after chest pain, as well as continued optimization of cardiovascular risk factors including diabetes, hypertension, high cholesterol. Monitor blood pressures at least twice daily. Bring values to your appointment. If able to tolerate, increase atorvastatin dose to 40 mg. Continue to monitor blood glucose and target 100-150. Continue cardiac, consistent carbohydrate diet. Include 150 minutes of moderate exercise a week. Seek medical attention in case of any worsening or new concerning symptoms. Discharge Attestations Time Spent in Discharge Care*: greater than 30 min Quality Metrics Clinical Quality Measures [ No reported AMI, CVA or VTE this stay] Coding Level of Care Code 88628 Total time (in minutes) for Discharge: 40 Diagnoses Chest pain R07.9 HTN (hypertension) I10 Hyperlipidemia E78.5
--- NOTE | 2024-11-21 11:16 | PC.NURSE ---
discharge instructions given and explained.pt and spouse verb understanding of instructions.discharged via w/c to exit at this time.spouse to drive pt home.
== END 2024-11-21 11:20 | disposition home or self-care (01) ==
LOC: ER 10:18 → CSU 10:26
PROVIDERS: Admitting Provider Internal Medicine; Emergency Provider Family Medicine; PCP Family Medicine; Visit Provider Internal Medicine
DX: R07.89 Other chest pain (principal); R06.02 Shortness of breath; E78.5 Hyperlipidemia, unspecified; E11.22 Type 2 diabetes mellitus with diabetic chronic kidney disease; I12.9 Hypertensive chronic kidney disease with stage 1 through stage 4 chronic kidney disease, or unspecified chronic kidney disease; N18.30 Chronic kidney disease, stage 3 unspecified; Z79.84 Long term (current) use of oral hypoglycemic drugs; Z85.46 Personal history of malignant neoplasm of prostate; Z83.3 Family history of diabetes mellitus; Z82.49 Family history of ischemic heart disease and other diseases of the circulatory system; Z87.891 Personal history of nicotine dependence; J34.89 Other specified disorders of nose and nasal sinuses
CPT/HCPCS: 36415; 36416; 71045; 78452; 80048; 80053; 81001; 82962; 84484; 85025; 85378; 93005; 93017; 93306; 96375; 96376; A9270; A9500; G0378; J2270; J2785; J7030; J9999

== ENCOUNTER → 2024-12-09 13:23 | Outpatient (BNVA) | payer MEDICARE, SELFPAY | PROVIDERS: PCP Family Medicine; Visit Provider Nurse Practitioner Family | DX: I10 Essential (primary) hypertension (principal); E78.5 Hyperlipidemia, unspecified; E11.9 Type 2 diabetes mellitus without complications; R07.9 Chest pain, unspecified | CPT/HCPCS: 99214 ==

== ENCOUNTER → 2025-01-08 10:20 | Outpatient (BNVA) | payer MEDICARE, SELFPAY | PROVIDERS: PCP Family Medicine; Visit Provider Nurse Practitioner Family | DX: I10 Essential (primary) hypertension (principal); E78.5 Hyperlipidemia, unspecified; Z87.891 Personal history of nicotine dependence | CPT/HCPCS: 99213 ==

== ENCOUNTER 2025-02-12 15:34 | Emergency (ER) | payer MEDICARE, SELFPAY ==
--- NOTE | 2025-02-12 15:36 | XR_ITS ---
WS: [id number] Portable AP upright chest, 02/12/2025 Clinical Data: chest pain Comparison: None. Findings: Portable chest, 11/19/2024 the pulmonary vascularity is not increased. No pneumonia or pneumothorax is seen. The aortic arch and descending thoracic aorta show tortuosity. Monitor leads are on the chest wall. XR/XR chest 1V portable [id number] Impression: Atherosclerosis.
--- NOTE | 2025-02-12 15:36 | ECG_ITS ---
[facility]: 2025-02-12 Pat Name: Zach Clark Department: Room: Gender: Male Director Of Financial Aid: : 1960 Requested By: Uday [place] Order Number: [id number] Devi MD: Tee Cabral M.D. Measurements Intervals [place] Rate: 75 P: 63 TN: 182 QRS: -6 QRSD: 90 T: 46 QT: 353 QTc: 395 Interpretive Statements SINUS RHYTHM Compared to ECG 11/19/2024 14:59:36 No significant changes Electronically Signed On 02-13-2025 14:52:19 CDT by Tee Cabral M.D. [email or web address]
[2025-02-12 15:38] VITALS: BP 165/112; PULSE 81; RESP 21; TEMP 36.6; O2SAT 100; BMI 25.7
[2025-02-12] MEDS: aspirin 81 mg Chew Tablet 324 MG PO (15:47)
--- NOTE | 2025-02-12 15:52 | ED_ITS ---
Documented by User: Uday Ocampo, 02/13/25 07:27 HPI - Chest Pain 2 General: Chief Complaint: Chest Pain Stated Complaint: chest pain Time Seen by Provider: 02/12/25 15:35 History of Present Illness: 65-year-old male presents emergency room as a rapid response from the ICU where he was visiting a family member. Earlier this year he had a stress test Lexiscan sestamibi that showed likely area of artifact I decided to treat the patient medically. Since that time he is not had any episodes of chest pain the day he began having chest pain this morning he took 2 nitro and had no relief he has not previously had to take any nitro since November. While he was in the ICU he began to have sharp chest pain worse when he took a deep breath and reproducible with palpation on his chest he took another nitro said he did not have any relief from that. He has no history of previous intervention stenting or bypass no history of DVT or PE he does take aspirin daily he is diabetic he has some reflux as well. He is not currently on any kind of anticoagulation other than the aspirin. No fever sweats chills or productive cough. Associated symptoms: Deny abdominal pain, dyspnea or fever(s) Related Data Home Medications ?Medication ?Instructions ?Recorded ?Confirmed multivitamin,yw-tiza-spldewqm 1 tab PO DAILY 06/18/20 01/08/25 (Complete Multivitamin tablet) metformin 1,000 mg tablet 1,000 mg PO BID 11/19/2404/27 tamsulosin 0.4 mg capsule mg PO 12/09/24 01/08/25 Previous Rx's ?Medication ?Instructions ?Recorded lansoprazole 30 mg capsule,delayed See Rx Instructions .Route 03/31/24 release .COMPLEX #90 caps losartan 25 mg tablet 25 mg PO DAILY #90 tabs 09/03 11/25 aspirin 81 mg capsule 81 mg PO DAILY #90 caps 11/02 09/27 nitroglycerin 0.4 mg sublingual 0.4 mg sublingual Q5M PRN chest 11/21/24 tablet pain #25 tabs atorvastatin 40 mg tablet (Lipitor) 40 mg PO QPM #90 t abs 12/22/24 glipizide 5 mg tablet 5 mg PO DAILY #90 tabs 12/22 metoprolol succinate 25 mg 12.5 mg (1/2 x 25 mg) PO DA KATYA #90 05/08/25 tablet,extended release 24 hr tabs Allergies Allergy/AdvReac Type Severity Reaction Status Date / Time shrimp Allergy Unknown Unknown Verified 01/08/25 10:45 Review of Systems 2 Const: Denies: fever(s) or chills Card: Denies: chest pain Resp: Denies: dyspnea GI: Denies: abdominal pain : Denies: dysuria, urinary frequency or urinary urgency Musc: Denies: neck pain or back pain Skin/Breast: Denies: rash PFSH ED 2 PFSH: Medical History Prostate cancer Elevated PSA DM2 (diabetes mellitus, type 2) Elevated cholesterol HTN (hypertension) Bursitis Vitamin D deficiency Surgical History History of shoulder surgery Right Hx of prostate biopsy Family History Brother Diabetes CAD (coronary artery disease) Father , AFTER A WHIPPLE PROCEDURE FOR TUMOR IN PANCREAS Cancer Mother Diabetes CABG AT AGE 86 CAD (coronary artery disease) Social History Smoking and tobacco/nicotine status: former use of tobacco/nicotine Quit status (tobacco/nicotine): has quit using Year quit tobacco: ~1999 Alcohol intake: never Substance/Drug Use: never Adopted: No Caregiver/support person: No Lives independently: No Marital status: Current occupational status: retired Previous occupational history: [employer] - Retired Physical Exam 2 Const: GENERAL APPEARANCE: cooperative ORIENTATION/CONSCIOUSNESS: Yes awake, Yes oriented to person, Yes oriented to place and Yes oriented to time HENMT: COMMON NORMALS: normocephalic, atraumatic and hearing grossly normal bilaterally HEAD & SCALP: normocephalic and atraumatic Resp: COMMON NORMALS: normal respiratory effort, No retractions, No use of accessory muscles and clear to auscultation bilaterally AUSCULTATION: clear to auscultation bilaterally Cardio: COMMON NORMALS: regular rate, regular rhythm and No murmurs present (Cardio) RATE: regular rate RHYTHM: regular rhythm GI: COMMON NORMALS: Soft to palpation and No hepatosplenomegaly present A USCULTATION: Yes normoactive bowel sounds PALPATION: Yes Soft to palpation, No Tenderness to palpation present (GI), No Guarding due to palpation present (GI) and Yes No hepatosplenomegaly present Extremity: COMMON NORMALS: normal to inspection, capillary refill normal, no clubbing, cyanosis or edema, no calf tenderness and no pedal edema Neuro: SENSORIUM/ORIENTATION: Yes oriented to person, Yes oriented to place and Yes oriented to time Skin: COMMON NORMALS: no rashes or lesions noted GENERAL SKIN EXAM: no rashes or lesions noted Course 2 Vital Signs: Vital signs: Vital Signs Temperature 97.8 F 02/12/25 15:38 Pulse Rate 74 02/12/25 19:52 Respiratory Rate 18 02/12/25 19:11 Blood Pressure 149/83 02/12/25 19:52 Pulse Oximetry 100 02/12/25 19:52 Oxygen Delivery Me thod Room Air 02/12/25 18:49 MDM - Chest Pain Medical Decision Making Initial labs reviewed. Initial troponin not significantly elevated. Awaiting second troponin. Care signed out to Dr. Oswald at change of shift. See final notes for diagnosis and disposition. I assumed care of the above-named patient from the [facility] emergency department physician with instructions to reexamine the patient and follow-up on outstanding test. The patient's EKG at 1748 was reviewed and was a normal sinus rhythm I went and examined the patient who was on oxygen and took the oxygen off and he remained with oxygen saturation in the high 90s and had no complaints of shortness of breath he says that shortly after he had some IV medication his chest pain resolved and currently he does not have any chest pain whatsoever. He is anxious to go home does not desire any further workup his second troponin came back also normal. I feel like this patient is very low risk we talked about the diagnostic uncertainty as well as the likely diagnosis of musculoskeletal chest pain. He has been under some stress which may or may not be contributing as well. I gave him reassurance as well as return precautions and instructions to follow-up with his primary care physician next week. Medical Records I reviewed the patient's medical records. Lab Data I reviewed the patient's lab results. 02/12/25 15:47 02/12/25 15:47 Radiology Impressions Chest X-Ray 02/12/25 15:36 Impression: Atherosclerosis. Laboratory Results WBC 12.19 10^3/uL (3.29-11.43) H 02/12/25 15:47 RBC 4.01 10^6/uL (3.85-5.65) 02/12/25 15:47 Hgb 12.30 g/dL (11.27-16.99) 02/12/25 15:47 Hct 38.2 % (37-53) 02/12/25 15:47 MCV 95.3 fl (82-101) 02/12/25 15:47 MCH 30.7 pg (27-33) 02/12/25 15:47 MCHC 32.2 g/dL (30-55) 02/12/25 15:47 RDW 12.8 % (12.1-15.1) 02/12/25 15:47 Plt Count 324 10^3/cmm (157-399) 02/12/25 15:47 MPV 10.0 fL (7.4-10.4) 02/12/25 15:47 Neut % (Auto) 73.6 % 02/12/25 15:47 Lymph % (Auto) 12.6 % 02/12/25 15:47 Routt % (Auto) 10.0 % 02/12/25 15:47 Eos % (Auto) 2.4 % 02/12/25 15:47 Baso % (Auto) 0.7 % 02/12/25 15:47 Neut # (Auto) 8.99 10^3/uL (1.8-7.7) H 02/12/25 15:47 Lymph # (Auto) 1.5 10^3/uL (0.8-4.8) 02/12/25 15:47 Routt # (Auto) 1.2 10^3/uL (0.2-0.9) H 02/12/25 15:47 Eos # (Auto) 0.3 10^3/uL (0.0-0.8) 02/12/25 15:47 Baso # (Auto) 0.1 10^3/uL (0.0-0.1) 02/12/25 15:47 Nucleated RBC % (auto) 0 % 02/12/25 15:47 Nucleated RBCs # 0.0 /100WBC 02/12/25 15:47 Sodium 141 mmol/L (136-145) 02/12/25 15:47 Potassium 4.8 mmol/L (3.5-5.1) 02/12/25 15:47 Chloride 105 mmol/L (98-107) 02/12/25 15:47 Carbon Dioxide 21 mmol/L (22-29) L 02/12/25 15:47 Anion Gap 19.8 (5-19) H 02/12/25 15:47 BUN 26 mg/dL (8-23) H 02/12/25 15:47 Creatinine 1.5 mg/dL (0.7-1.2) H 02/12/25 15:47 GFR Calculation 46.8 mL/min (90-130) L 02/12/25 15:47 Glucose 136 mg/dL (65-115) H 02/12/25 15:47 Calculated Osmolality 299 mOsm/kg (285-295) H 02/12/25 15:47 Calcium 9.3 mg/dL (8.5-10.5) 02/12/25 15:47 Total Bilirubin 0.4 mg/dL (0.15-1.2) 02/12/25 15:47 AST 28 U/L (0-40) 02/12/25 15:47 ALT 34 U/L (0-41) 02/12/25 15:47 Alkaline Phosphatase 112 U/L (40-130) 02/12/25 15:47 Troponin T Baseline 23 ng/L (0-15) H 02/12/25 15:47 Troponin T 120 Minute 14.27 ng/L (0-15) 02/12/25 17:38 Delta Troponin T -8.73 ABS# (0-10) L 02/12/25 17:38 Total Protein 6.5 g/dL (6.6-8.7) L 02/12/25 15:47 Albumin 4.8 g/dL (3.5-5.2) 02/12/25 15:47 Globulin 1.7 g/dL (1.3-4.6) 02/12/25 15:47 EKG Data EKG 1: Interpretation: EKG 02/12/2025 sinus rhythm with a rate of 75 NV interval 182 and a QTc of [address] changes noted no ST segment abnormalities. Unchanged from previous EKG 11/19/2024 Discharge Plan Discharge Patient Disposition: Home Clinical Impression: Atypical chest pain Condition: Stable Prescriptions: No Action Complete Multivitamin Tablet 1 tab PO DAILY atorvastatin [Lipitor] 40 mg tablet 40 mg PO QPM Qty: 90 3RF glipizide 5 mg tablet 5 mg PO DAILY Qty: 90 3RF metoprolol succinate 25 mg tablet extended release 24 hr 12.5 mg PO DAILY Qty: 90 0RF tamsulosin 0.4 mg capsule PO lansoprazole 30 mg capsule,delayed release(DR/EC) See Rx Instructions .ROUTE .COMPLEX Qty: 90 3RF Dose Instruction: take 1 capsule BY MOUTH EVERY MORNING FOR STOMACH *TAKE BEFORE EATING* Rx Instructions: take 1 capsule BY MOUTH EVERY MORNING FOR STOMACH *TAKE BEFORE EATING* losartan 25 mg tablet 25 mg PO DAILY Qty: 90 3RF metformin 1,000 mg tablet 1,000 mg PO BID Rx Instructions: TAKE 1 TABLET BY MOUTH TWICE DAILY aspirin 81 mg capsule 81 mg PO DAILY Qty: 90 0RF nitroglycerin 0.4 mg tablet, sublingual 0.4 mg sublingual Q5M PRN (Reason: chest pain) Qty: 25 0RF Rx Instructions: do not exceed 3 doses per episode Discharge Orders: Discharge ED (Routine); Ordered 02/12/25 Ordered By: Bib Oswald Referrals: Ernesto Chavarria MD [Primary Care Provider, Family Practice] Discharge Diet: Cardiac Discharge Activity: Resume usual activity Patient Instructions: Opioid Safety, Pain Management Activity Restrictions/Additional Instructions: 1. Rest, take ibuprofen if no contra-indications for discomfort. 2. Follow up with PCP next week for recheck. Return for new or worsening symptoms. Print Language: East Timorese Coding Level of Care Code ED Brief Writer for Chg Fwd Documented by User: Bib Oswald DO 02/12/25 19:42 HPI - Chest Pain 2 General: Chief Complaint: Chest Pain Stated Complaint: chest pain Time Seen by Provider: 02/12/25 15:35 Related Data Home Medications ?Medication ?Instructions ?Recorded ?Confirmed multivitamin,ig-zvpz-tawlwvas 1 tab PO DAILY 06/18/20 01/08/25 (Complete Multivitamin tablet) metformin 1,000 mg tablet 1,000 mg PO BID 11/19/2404/27 tamsulosin 0.4 mg capsule mg PO 12/09/24 01/08/25 Previous Rx's ?Medication ?Instructions ?Recorded lansoprazole 30 mg capsule,delayed See Rx Instructions .Route 03/31/24 release .COMPLEX #90 caps losartan 25 mg tablet 25 mg PO DAILY #90 tabs 09/03 11/25 aspirin 81 mg capsule 81 mg PO DAILY #90 caps 11/02 09/27 nitroglycerin 0.4 mg sublingual 0.4 mg sublingual Q5M PRN chest 11/21/24 tablet pain #25 tabs atorvastatin 40 mg tablet (Lipitor) 40 mg PO QPM #90 t abs 12/22/24 glipizide 5 mg tablet 5 mg PO DAILY #90 tabs 12/22 metoprolol succinate 25 mg 12.5 mg (1/2 x 25 mg) PO DA KATYA #90 01/08/25 tablet,extended release 24 hr tabs Allergies Allergy/AdvReac Type Severity Reaction Status Date / Time shrimp Allergy Unknown Unknown Verified 01/08/25 10:45 PFSH ED 2 PFSH: Medical History Prostate cancer Elevated PSA DM2 (diabetes mellitus, type 2) Elevated cholesterol HTN (hypertension) Bursitis Vitamin D deficiency Surgical History History of shoulder surgery Right Hx of prostate biopsy Family History Brother Diabetes CAD (coronary artery disease) Father , AFTER A WHIPPLE PROCEDURE FOR TUMOR IN PANCREAS Cancer Mother Diabetes CABG AT AGE 86 CAD (coronary artery disease) Social History Smoking and tobacco/nicotine status: former use of tobacco/nicotine Quit status (tobacco/nicotine): has quit using Year quit tobacco: ~1999 Alcohol intake: never Substance/Drug Use: never Adopted: No Caregiver/support person: No Lives independently: No Marital status: Current occupational status: retired Previous occupational history: [employer] - Retired Course 2 Vital Signs: Vital signs: Vital Signs Temperature 97.8 F 02/12/25 15:38 Pulse Rate 74 02/12/25 19:52 Respiratory Rate 18 02/12/25 19:11 Blood Pressure 149/83 02/12/25 19:52 Pulse Oximetry 100 02/12/25 19:52 Oxygen Delivery Me thod Room Air 02/12/25 18:49 MDM - Chest Pain Medical Decision Making I assumed care of the above-named patient from the [facility] emergency department physician with instructions to reexamine the patient and follow-up on outstanding test. The patient's EKG at 1748 was reviewed and was a normal sinus rhythm I went and examined the patient who was on oxygen and took the oxygen off and he remained with oxygen saturation in the high 90s and had no complaints of shortness of breath he says that shortly after he had some IV medication his chest pain resolved and currently he does not have any chest pain whatsoever. He is anxious to go home does not desire any further workup his second troponin came back also normal. I feel like this patient is very low risk we talked about the diagnostic uncertainty as well as the likely diagnosis of musculoskeletal chest pain. He has been under some stress which may or may not be contributing as well. I gave him reassurance as well as return precautions and instructions to follow-up with his primary care physician next week. Lab Data 02/12/25 15:47 02/12/25 15:47 Radiology Impressions Chest X-Ray 02/12/25 15:36 Impression: Atherosclerosis. Laboratory Results WBC 12.19 10^3/uL (3.29-11.43) H 02/12/25 15:47 RBC 4.01 10^6/uL (3.85-5.65) 02/12/25 15:47 Hgb 12.30 g/dL (11.27-16.99) 02/12/25 15:47 Hct 38.2 % (37-53) 02/12/25 15:47 MCV 95.3 fl (82-101) 02/12/25 15:47 MCH 30.7 pg (27-33) 02/12/25 15:47 MCHC 32.2 g/dL (30-55) 02/12/25 15:47 RDW 12.8 % (12.1-15.1) 02/12/25 15:47 Plt Count 324 10^3/cmm (157-399) 02/12/25 15:47 MPV 10.0 fL (7.4-10.4) 02/12/25 15:47 Neut % (Auto) 73.6 % 02/12/25 15:47 Lymph % (Auto) 12.6 % 02/12/25 15:47 Routt % (Auto) 10.0 % 02/12/25 15:47 Eos % (Auto) 2.4 % 02/12/25 15:47 Baso % (Auto) 0.7 % 02/12/25 15:47 Neut # (Auto) 8.99 10^3/uL (1.8-7.7) H 02/12/25 15:47 Lymph # (Auto) 1.5 10^3/uL (0.8-4.8) 02/12/25 15:47 Routt # (Auto) 1.2 10^3/uL (0.2-0.9) H 02/12/25 15:47 Eos # (Auto) 0.3 10^3/uL (0.0-0.8) 02/12/25 15:47 Baso # (Auto) 0.1 10^3/uL (0.0-0.1) 02/12/25 15:47 Nucleated RBC % (auto) 0 % 02/12/25 15:47 Nucleated RBCs # 0.0 /100WBC 02/12/25 15:47 Sodium 141 mmol/L (136-145) 02/12/25 15:47 Potassium 4.8 mmol/L (3.5-5.1) 02/12/25 15:47 Chloride 105 mmol/L (98-107) 02/12/25 15:47 Carbon Dioxide 21 mmol/L (22-29) L 02/12/25 15:47 Anion Gap 19.8 (5-19) H 02/12/25 15:47 BUN 26 mg/dL (8-23) H 02/12/25 15:47 Creatinine 1.5 mg/dL (0.7-1.2) H 02/12/25 15:47 GFR Calculation 46.8 mL/min (90-130) L 02/12/25 15:47 Glucose 136 mg/dL (65-115) H 02/12/25 15:47 Calculated Osmolality 299 mOsm/kg (285-295) H 02/12/25 15:47 Calcium 9.3 mg/dL (8.5-10.5) 02/12/25 15:47 Total Bilirubin 0.4 mg/dL (0.15-1.2) 02/12/25 15:47 AST 28 U/L (0-40) 02/12/25 15:47 ALT 34 U/L (0-41) 02/12/25 15:47 Alkaline Phosphatase 112 U/L (40-130) 02/12/25 15:47 Troponin T Baseline 23 ng/L (0-15) H 02/12/25 15:47 Troponin T 120 Minute 14.27 ng/L (0-15) 02/12/25 17:38 Delta Troponin T -8.73 ABS# (0-10) L 02/12/25 17:38 Total Protein 6.5 g/dL (6.6-8.7) L 02/12/25 15:47 Albumin 4.8 g/dL (3.5-5.2) 02/12/25 15:47 Globulin 1.7 g/dL (1.3-4.6) 02/12/25 15:47 All radiology interpretation(s) finalized by discharge EKG Data EKG 1: Other EKG comments: 17:48 EKG - Normal sinus rhythm. Normal intervals and axis. No STEMI. No prolonged QTC. Discharge Plan Discharge Patient Disposition: Home Clinical Impression: Atypical chest pain Condition: Stable Prescriptions: No Action Complete Multivitamin Tablet 1 tab PO DAILY atorvastatin [Lipitor] 40 mg tablet 40 mg PO QPM Qty: 90 3RF glipizide 5 mg tablet 5 mg PO DAILY Qty: 90 3RF metoprolol succinate 25 mg tablet extended release 24 hr 12.5 mg PO DAILY Qty: 90 0RF tamsulosin 0.4 mg capsule PO lansoprazole 30 mg capsule,delayed release(DR/EC) See Rx Instructions .ROUTE .COMPLEX Qty: 90 3RF Dose Instruction: take 1 capsule BY MOUTH EVERY MORNING FOR STOMACH *TAKE BEFORE EATING* Rx Instructions: take 1 capsule BY MOUTH EVERY MORNING FOR STOMACH *TAKE BEFORE EATING* losartan 25 mg tablet 25 mg PO DAILY Qty: 90 3RF metformin 1,000 mg tablet 1,000 mg PO BID Rx Instructions: TAKE 1 TABLET BY MOUTH TWICE DAILY aspirin 81 mg capsule 81 mg PO DAILY Qty: 90 0RF nitroglycerin 0.4 mg tablet, sublingual 0.4 mg sublingual Q5M PRN (Reason: chest pain) Qty: 25 0RF Rx Instructions: do not exceed 3 doses per episode Discharge Orders: Discharge ED (Routine); Ordered 02/12/25 Ordered By: Bib Oswald Referrals: Ernesto Chavarria MD [Primary Care Provider, [facility]] Discharge Diet: Cardiac Discharge Activity: Resume usual activity Patient Instructions: Opioid Safety, Pain Management Activity Restrictions/Additional Instructions: 1. Rest, take ibuprofen if no contra-indications for discomfort. 2. Follow up with PCP next week for recheck. Return for new or worsening symptoms. Print Language: [place]se Coding Level of Care Code ED Brief Writer for Tonja Perez
[2025-02-12 15:59] LABS: Basophils # 0.1 10^3/uL (0.0-0.1); Basophils % 0.7 %; Eosinophils # 0.3 10^3/uL (0.0-0.8); Eosinophils % 2.4 %; Hematocrit 38.2 % (37-53); Lymphocytes # 1.5 10^3/uL (0.8-4.8); Lymphocytes % 12.6 %; Mean Corpuscular HGB Conc 32.2 g/dL (30-55); Mean Corpuscular Hemoglobin 30.7 pg (27-33); Mean Corpuscular Volume 95.3 fl (82-101); Monocytes # 1.2 10^3/uL (0.2-0.9); Neutrophils # 8.99 10^3/uL (1.8-7.7); Neutrophils % 73.6 %; Nucleated Red Blood Cells % 0 %; Platelet Count 324 10^3/cmm (157-399); Red Blood Count 4.01 10^6/uL (3.85-5.65); Red Cell Distribution Width 12.8 % (12.1-15.1); White Blood Count 12.19 10^3/uL (3.29-11.43)
[2025-02-12 16:23] LABS: Alanine Aminotransferase 34 U/L (0-41); Albumin Level 4.8 g/dL (3.5-5.2); Alkaline Phosphatase 112 U/L (40-130); Anion Gap 19.8 (5-19); Aspartate Amino Transferase 28 U/L (0-40); Blood Urea Nitrogen 26 mg/dL (8-23); Calcium 9.3 mg/dL (8.5-10.5); Carbon Dioxide 21 mmol/L (22-29); Chloride 105 mmol/L (98-107); Creatinine Clr Calc Pharmacy 55.5227; Globulin 1.7 g/dL (1.3-4.6); Glomerular Filtration Rate 46.8 mL/min (90-130); Glucose 136 mg/dL (65-115); Osmolality Calculated 299 mOsm/kg (285-295); Potassium 4.8 mmol/L (3.5-5.1); Sodium 141 mmol/L (136-145); Total Bilirubin 0.4 mg/dL (0.15-1.2); Total Protein 6.5 g/dL (6.6-8.7); Troponin(5th) Baseline 23 ng/L (0-15)
[2025-02-12 17:15] VITALS: BP 132/86; PULSE 68; O2SAT 100
[2025-02-12] MEDS: ketorolac 30 mg/mL INJ IVP (17:19)
[2025-02-12 17:30] VITALS: BP 127/78; PULSE 75; O2SAT 99
--- NOTE | 2025-02-12 17:48 | ECG_ITS ---
[facility]: [facility]25[facility]12 Pat Name: Zach Clark Department: Room: Gender: Male Medical Practice Administrator: : 1960 Requested By: Uday [place] Order Number: [id number] Reading MD: Tee Cabral M.D. Measurements Intervals Baggs Rate: 73 P: 4 MT: 175 QRS: -16 QRSD: 89 T: 29 QT: 349 QTc: 385 Interpretive Statements SINUS RHYTHM Compared to ECG 02/12/2025 15:38:22 No significant changes Electronically Signed On 02-13-2025 15:04:05 CDT by Tee Cabral M.D. [email or web address]
[2025-02-12 18:25] LABS: Troponin 5 2HR 14.27 ng/L (0-15)
[2025-02-12 18:27] LABS: Troponin 5 2HR Delta -8.73 ABS# (0-10)
[2025-02-12 18:49] VITALS: BP 132/79; PULSE 78; O2SAT 97
[2025-02-12 19:11] VITALS: BP 161/99; PULSE 68; RESP 18; O2SAT 99
[2025-02-12 19:52] VITALS: BP 149/83; PULSE 74; O2SAT 100
== END 2025-02-12 19:52 | disposition home or self-care (01) ==
PROVIDERS: Emergency Provider Family Medicine; PCP Family Medicine
DX: R07.89 Other chest pain (principal); I10 Essential (primary) hypertension; E11.9 Type 2 diabetes mellitus without complications; Z85.46 Personal history of malignant neoplasm of prostate; Z87.891 Personal history of nicotine dependence; Z79.899 Other long term (current) drug therapy; Z79.84 Long term (current) use of oral hypoglycemic drugs; Z79.82 Long term (current) use of aspirin
CPT/HCPCS: 36415; 71045; 80053; 84484; 85025; 93005; 96374; 96375; 99285; J1885; J9999

== ENCOUNTER → 2025-03-18 08:13 | Outpatient (BNVA) | payer MEDICARE, SELFPAY | PROVIDERS: PCP Family Medicine; Visit Provider Family Medicine | DX: Z00.00 Encounter for general adult medical examination without abnormal findings (principal); Z51.81 Encounter for therapeutic drug level monitoring; E11.9 Type 2 diabetes mellitus without complications; E53.8 Deficiency of other specified B group vitamins | CPT/HCPCS: 80053; 82607; 83036; 85025 ==

== ENCOUNTER → 2025-05-13 12:20 | Outpatient (BNVA) | payer MEDICARE, SELFPAY | PROVIDERS: PCP Family Medicine; Visit Provider Emergency Medicine | DX: B34.9 Viral infection, unspecified (principal) | CPT/HCPCS: 87400; 87420; 87426 ==

== ENCOUNTER → 2025-06-08 15:25 | Outpatient (BNVA) | payer MEDICARE, SELFPAY | PROVIDERS: PCP Family Medicine; Visit Provider Nurse Practitioner Family | DX: R07.9 Chest pain, unspecified (principal); I10 Essential (primary) hypertension; E78.5 Hyperlipidemia, unspecified; E11.9 Type 2 diabetes mellitus without complications; Z79.84 Long term (current) use of oral hypoglycemic drugs; Z87.891 Personal history of nicotine dependence; I25.2 Old myocardial infarction | CPT/HCPCS: 99214 ==

== ENCOUNTER → 2025-06-16 08:39 | Outpatient (BNVA) | payer MEDICARE, SELFPAY | PROVIDERS: PCP Family Medicine; Visit Provider Family Medicine | DX: E11.9 Type 2 diabetes mellitus without complications (principal); R35.0 Frequency of micturition; Z51.81 Encounter for therapeutic drug level monitoring | CPT/HCPCS: 80053; 83036; 84153; 85025 ==

== ENCOUNTER 2025-08-05 12:18 | Outpatient (CLI) | payer MEDICARE, SELFPAY | END 2025-08-05 12:19 | disposition home or self-care (01) | LOC: SLEEP 12:21 | PROVIDERS: PCP Family Medicine; Referring Provider Family Medicine; Visit Provider Internal Medicine Pulmonary Disease | DX: G47.33 Obstructive sleep apnea (adult) (pediatric) (principal) | CPT/HCPCS: G0399 ==